=== PATIENT | male | born 1935 | race Caucasian/White ===

== ENCOUNTER → 2017-02-27 | Outpatient (CLI) | payer OTHER, BC ==
[~2017-02-27] MED LIST: AMOX875T PO; CLC100 PO; DUTA0.5C PO; FINA5TAB PO; FLM4 PO; IBUP-1459 PO; LISI40TA PO; NAPR220T40 PO; PRLSR20 PO; SIMV40TA2 PO; SIMV80TA2 PO; TERA5CAP PO; TRAM-10 PO; ZNTT/150 PO
--- NOTE | 2017-02-28 17:23 | DIAGNOSTIC IMAGING REPORT ---
PET/CT CLINICAL HISTORY: Pulmonary nodule. TECHNIQUE: A PET/CT was performed from the skull base through the upper thighs following intravenous injection of F 18 FDG IV. The injection was performed at 12:15 PM on February 27, 2017 and imaging began at 1:00 PM on February 27, 2017. Unenhanced CT was performed for attenuation correction purposes and anatomic localization. COMPARISON STUDY: CT of the abdomen and pelvis December 18, [address] performed earlier today. FINDINGS: Head and neck: No suspicious FDG uptake is identified within the neck. There is no cervical lymphadenopathy. Chest: There is marked FDG uptake within the lobulated 4 x 3.5 cm left lower lobe mass. The SUV max for this mass is 8.4. There is moderate FDG uptake within the circumscribed 1 cm right upper lobe nodule which is shown on image 65. The SUV max for this nodule is 4.4. A few additional smaller right upper lobe nodules are indeterminate and too small to evaluate by PET imaging. No suspicious ludin FDG uptake is identified within the chest. Abdomen and Pelvis: No suspicious FDG uptake is identified within the abdomen or the pelvis. There is no abdominal or pelvic lymphadenopathy. Prostate is moderately enlarged. Musculoskeletal: No suspicious skeletal FDG uptake is identified. IMPRESSION: 1. Marked FDG uptake within the 4 x 3.5 cm left lower lobe mass consistent with bronchogenic carcinoma. 2. Moderate FDG uptake within a circumscribed 1 cm right upper lobe nodule. This nodule is indeterminate although suspicious for a neoplastic process given the degree of FDG uptake. This could reflect a metastasis or primary pulmonary lesion. 3. No evidence of ludin involvement. Electronically signed by: Coleman Rutherford M.D. 02/28/2017 5:22 PM Dictated Date/Time: 02/27/2017 2:14 PM
== END | disposition home or self-care (01) ==
LOC: C.PET 07:31
PROVIDERS: ATTEND Physician Assistant
DX: R91.1 Solitary pulmonary nodule (principal)

== ENCOUNTER → 2017-02-27 | Outpatient (CLI) | payer BC, OTHER ==
--- NOTE | 2017-02-27 08:06 | DIAGNOSTIC IMAGING REPORT ---
CT OF THE CHEST WITHOUT IV CONTRAST CLINICAL HISTORY: Lung mass. Shortness of breath. COMPARISON STUDY: CT of the abdomen and pelvis December 18, 2016. CT DOSE: 667.69 mGy.cm TECHNIQUE: Axial images of the chest were obtained without IV contrast. Images were reviewed in the axial, sagittal, and coronal planes. IV contrast was not administered for this examination. FINDINGS: No enlarged axillary, mediastinal or hilar lymph nodes are present. The size of the heart is normal. There is no pericardial effusion. Note is made of a lobulated 4 x 3.5 cm left lower lobe mass with several pleural tags. There is also an indeterminate 1 cm circumscribed right upper lobe nodule on image 81 of 301. A few smaller right upper lobe nodules measure up to 4 mm. These are indeterminate. No suspicious osseous lesions are present. There is no consolidation. No pneumothorax or pleural effusion is present. Visualized portions of the upper abdomen demonstrate a subtle 2.6 cm hepatic dome hypodense lesion shown to likely reflect a hemangioma on abdominal CT of December 18, 2016. IMPRESSION: 1. 4 x 3.5 cm lobulated left lower lobe mass which has slightly increased in size since CT of December 18, 2016. This is consistent with bronchogenic carcinoma. 2. No thoracic lymphadenopathy. 3. Several indeterminate right upper lobe nodules, the largest of which is a 1 cm circumscribed nodule. Evaluation with PET/CT may be of benefit. 4. 2.6 cm hepatic dome lesion which was shown to represent a hemangioma on CT of December 18, 2016. Electronically signed by: Coleman Rutherford M.D. 02/27/2017 8:05 AM Dictated Date/Time: 02/27/2017 7:50 AM
== END | disposition home or self-care (01) ==
LOC: C.CTS 07:27
PROVIDERS: ATTEND Physician Assistant
DX: R06.02 Shortness of breath (principal); R91.8 Other nonspecific abnormal finding of lung field; R91.1 Solitary pulmonary nodule; K76.9 Liver disease, unspecified

== ENCOUNTER 2017-03-27 07:36 | Day surgery (SDC) | payer OTHER, BC ==
[2017-03-14 16:00] VITALS: BMI 31.0
[~2017-03-27] VITALS: Ht 180.3 cm; Wt 102.0 kg
[~2017-03-27 07:36] MED LIST changes: -AMOX875T PO; -CLC100 PO; -FINA5TAB PO; +LACTATED RINGER'S 1000ML 1,000 ML IV SCH; -NAPR220T40 PO; -SIMV40TA2 PO; -TRAM-10 PO; -ZNTT/150 PO
[2017-03-27] MEDS ORDERED: NAPR220T40 PO (07:58)
[2017-03-27 08:03] VITALS: BP 125/63; PULSE 91; TEMP 36.6; O2SAT 94; Ht 180.3 cm; Wt 102.0 kg
[2017-03-27] MEDS ORDERED: FENTANYL CITRATE INJ 50 MCG/1 ML 2 ML VIAL ONE (08:43)
[2017-03-27] MEDS ORDERED: LIDOCAINE HCL 2% 2 ML VIAL (20MG/ML) ONE (08:43)
[2017-03-27] MEDS ORDERED: PROPOFOL IV EMULSION 10 MG/ML 20 ML VIAL IV ONE (08:43)
[2017-03-27] MEDS ORDERED: ROCURONIUM BROMIDE 10 MG/ML 5 ML VIAL ONE (08:43)
--- NOTE | 2017-03-27 09:01 | History and Physical ---
History & Physical Date Mar 27, 2017. Chief Complaint CC: Lung Mass History of Present Illness The patient is a 81 year old male with complaints of Lung Mass This patient is an [id number] 81-year-old gentleman with pulmonary mass with a high risk for primary lung carcinoma from his history of tobacco exposure as well as asbestos. At this time he has PET avid left lower lobe nodule at greatest dimension of 4 centimeters with an SUV of 8.4. He also has complicating the matter a 1.1 centimeter right upper lobe nodule with minimal PET avidity. The mediastinum showed no signs of PET avidity via the PET scan. The patient will require EBUS/ENB evaluation for further workup. The patient and his daughter both agree this is in the best interest of the patient. 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 PET/CT (02/27/17) LLL 4 x 3.5cm mass SUV: 8.4 RUL 1cm SUV: 4.4 Additional History Hepatic Disease: No Endocrine Disorder: No Kidney Disease: No Hypertension: No Heart Disease: No Bleeding Tendencies: No Infectious Diseases: No Allergies Coded Allergies: No Known Allergies (Unverified , 03/27/17) Home Medications Scheduled Dutasteride (Avodart), 0.5 MG PO QAM Lisinopril (Zestril), 40 MG PO QAM Simvastatin (Zocor), 80 MG PO QAM Tamsulosin HCl (Tamsulosin HCl), 1 CAP PO QPM Terazosin (Hytrin), 5 MG PO HS Scheduled PRN Naproxen Sodium (Aleve), 220 MG PO Q8 PRN for Pain Physical Examination Skin: warm/dry, no rash Eyes: normal inspection, EOMI, sclerae normal ENT: normal ENT inspection, pharynx normal Head: normocephalic, atraumatic Neck: supple, no adenopathy, trachea midline Respiratory/Chest: lungs clear, normal breath sounds, no respiratory distress Cardiovascular: regular rate, rhythm, no edema, no murmur Abdomen / GI: normal bowel sounds, non tender Back: normal inspection Extremities: normal inspection, normal range of motion Neurologic/Psych: no motor/sensory deficits, alert, normal reflexes, oriented x 3 Diagnosis Lung mass ASA Classification: ASA Class III Plan of Treatment The patient is to undergo overture navigational bronchoscopy as well as endobronchial ultrasound for evaluation of his lung mass, mediastinum and small right upper lobe nodule.
--- NOTE | 2017-03-27 09:14 | History & Physical Bridge Note ---
H&P Re-Evaluation Bridge Note: I have examined the patient, reviewed the History & Physical and in the interval since the performance of the History & Physical I have noted the following changes of clinical significance: No changes noted
[2017-03-27] MEDS ORDERED: EpHEDrine SULFATE 50MG/5ML SYR ONE (09:34)
[2017-03-27] MEDS ORDERED: ONDANSETRON INJ 2 MG/ML 2 ML VIAL ONE ×2 (09:34→11:45)
[2017-03-27] MEDS ORDERED: DEXAMETHASONE SOD INJ 4 MG/ML VIAL ONE (09:34)
[2017-03-27] MEDS ORDERED: ONDANSETRON INJ 2 MG/ML 2 ML VIAL IV PRN (09:45)
[2017-03-27] MEDS ORDERED: ATROPINE SULFATE 0.1 MG/ML 5ML SYR IV PRN (09:45)
[2017-03-27] MEDS ORDERED: FENTANYL CITRATE INJ 50 MCG/1 ML 2 ML VIAL IV PRN (09:45)
[2017-03-27] MEDS ORDERED: NEOSTIGMINE METHYLSULFATE 5 MG/5 ML SYR ONE (10:25)
[2017-03-27] MEDS ORDERED: GLYCOPYRROLATE INJ 0.2 MG/ML VIAL ONE (10:25)
--- NOTE | 2017-03-27 11:52 | Bronchoscopy Procedure Note ---
Bronchoscopy Procedure Note Procedure: Flexible-Bronchoscopy, EBUS, Tbbx, GETA Consent: Obtained through the patient placed into the chart Preprocedural diagnosis: Pulmonary mass Postprocedural diagnosis: Pulmonary mass Analgesia: GETA Sedation: GETA Procedure: The Olympus video bronchoscope and EBUS scope were used for this procedure Initially the flexible bronchoscope was used for evaluation of the airways. The ET tube was notably 5 cm above the level of the nura. Trachea: Visualized portion of the trachea was anatomically within normal limits Nura: Anatomically within normal limits Right bronchial tree: Right mainstem bronchus: Anatomically within normal limits Right upper lobe: Anatomically within normal limits Bronchus intermedius: Anatomically within normal limits Right middle lobe: Anatomically within normal limits Right lower lobe: Anatomically within normal limits Findings: No significant findings noted Left bronchial tree: Left mainstem bronchus: Anatomically within normal limits Left upper lobe: Anatomically within normal limits Lingula: Anatomically within normal limits Left lower lobe: Anatomically within normal limits Findings: No significant findings noted EBUS/RADHA: Tbbx Henrry Stations: 7: # of passes 3 4R: # of passes passes 3 4L: # of passes 3 10R: # of passes 3 10L: # of passes 3 11R: # of passes 3 11L: # of passes 3 ENB: LLL: FNA, Tbbx, BAL, Cytology brushing RUL: FNA, Tbbx, BAL, Cytology brushing EBL: none Complications: None Follow-up: Patient is to be removed to PACU and followed
--- NOTE | 2017-03-27 12:30 | DIAGNOSTIC IMAGING REPORT ---
INTRAOPERATIVE RADIOGRAPH CLINICAL HISTORY: Bilateral navigational bronchoscopy. Fluoroscopy time: 252 seconds. FINDINGS: 2 spot fluoroscopic views of the chest are presented. Correlation is made with chest CT dated 02/27/2017. On the first image the bronchoscope projects over the left lung on the second image the bronchoscope projects over the right lung. IMPRESSION: Intraoperative images from bilateral navigational bronchoscopy. See operative report for detailed findings. Electronically signed by: Navin Hyatt M.D. 03/27/2017 12:29 PM Dictated Date/Time: 03/27/2017 12:27 PM
[2017-03-27 12:35] VITALS: BP 141/74; PULSE 71; TEMP 36.3; O2SAT 95
[2017-03-27 13:05] VITALS: BP 128/70; PULSE 69; O2SAT 93
[2017-03-27 13:35] VITALS: BP 118/68; PULSE 76; TEMP 36.3; O2SAT 94
--- NOTE | 2017-03-27 13:50 | Discharge Instructions ---
Discharge Instructions Date of Service Mar 27, 2017. Admission Reason for Admission: Lung Nodule, Lung Mass, Sob Discharge Discharge Diagnosis / Problem: lung mass Discharge Goals Goal(s): Diagnostic testing Activity Recommendations Activity Limitations: resume your previous activity . Instructions / Follow-Up Instructions / Follow-Up Follow-up in the pulmonary clinic with Dr. Dawn [facility] Diet Patient's current hospital diet: Discharge Diet Recommended Diet: Regular Diet Procedures Procedures Performed: Electromagnetic Navigational Bronchoscopy; Endobronchial Ultrasound Transbronchial Biopsy, Trans-Tracheal/Bronchial biospy , Bronchial Lavage Pending Studies Studies pending at discharge: no Medical Emergencies . Who to Call and When: Medical Emergencies: If at any time you feel your situation is an emergency, please call 911 immediately. . Non-Emergent Contact Non-Emergency issues call your: [employer] Call Non-Emergent contact if: temperature is above 101.5 . . "Provider Documentation" section prepared by Abdullahi Dawn. . VTE Core Measure Inpt VTE Proph given/why not?: Treatment not indicated
--- NOTE | 2017-03-27 13:56 | DIAGNOSTIC IMAGING REPORT ---
SINGLE VIEW CHEST CLINICAL HISTORY: Status post navigational bronchoscopy. FINDINGS: An AP, portable, upright chest radiograph is correlated with chest CT dated 02/27/2017. The examination is degraded by portable technique and patient rotation. The heart is mildly enlarged. The mediastinal contour is within normal limits. Interstitial thickening and nodularity are similar to previous. A left basilar opacity likely corresponds to the mass lesion seen on the 02/27/2017 CT scan. Linear atelectasis is present the left lung base. No pleural effusion or pneumothorax is seen. The skeletal structures are osteopenic. The bony thorax is grossly intact. IMPRESSION: 1. No pneumothorax is identified post procedure. 2. A left basilar opacity corresponds to the mass lesion seen by CT on 02/27/2017. 3. Smaller right-sided pulmonary nodules seen on the prior CT scan were not well visualized by x-ray. 4. Mild cardiomegaly. Electronically signed by: Navin Hyatt M.D. 03/27/2017 1:55 PM Dictated Date/Time: 03/27/2017 1:52 PM
[2017-03-27 14:15] VITALS: BP 131/63; PULSE 68; TEMP 36.6; O2SAT 94
--- NOTE | 2017-03-27 14:32 | Anesthesiology Progress Note ---
Anesthesia Post Op Note Date & Time Mar 27, 2017 at 14:31 Vital Signs Pain Intensity: 0 Vital Signs Past 12 Hours Date Time Temp Pulse Resp B/P (MAP) Pulse Ox O2 Delivery O2 Flow Rate FiO2 03/27/17 14:15 36.6 68 18 131/63 94 Room Air 03/27/17 13:35 36.3 76 18 118/68 94 Room Air 03/27/17 13:05 69 18 128/70 93 Room Air 03/27/17 12:35 36.3 71 18 141/74 95 Room Air 03/27/17 12:26 36.5 16 139/78 03/27/17 12:21 76 13 03/27/17 12:21 76 13 150/75 98 03/27/17 12:16 76 13 151/72 98 03/27/17 12:16 76 13 03/27/17 12:11 77 12 128/79 98 03/27/17 12:11 77 12 03/27/17 12:06 81 14 03/27/17 12:06 82 14 131/83 92 03/27/17 12:01 81 13 141/67 92 03/27/17 12:01 81 13 03/27/17 11:58 141/63 03/27/17 11:51 36.2 85 16 152/67 98 Mask 7 03/27/17 08:03 36.6 91 20 125/63 (83) 94 Room Air Notes Mental Status: alert / awake / arousable, participated in evaluation Pt Amnestic to Procedure: Yes Nausea / Vomiting: adequately controlled Pain: adequately controlled Airway Patency, RR, SpO2: stable & adequate BP & HR: stable & adequate Hydration State: stable & adequate Anesthetic Complications: no major complications apparent
[2017-04-30] MEDS ORDERED: SIMV40TA2 PO (10:49)
[2017-04-30] MEDS ORDERED: ZNTT/150 PO (10:49)
[2017-04-30] MEDS ORDERED: FINA5TAB PO (10:49)
== END 2017-03-27 14:30 | disposition home or self-care (01) ==
LOC: C.ACU 07:36
PROVIDERS: ATTEND Internal Medicine Critical Care Medicine
DX: R91.1 Solitary pulmonary nodule (principal); E66.9 Obesity, unspecified; Z87.891 Personal history of nicotine dependence; Z80.1 Family history of malignant neoplasm of trachea, bronchus and lung; Z82.49 Family history of ischemic heart disease and other diseases of the circulatory system

== ENCOUNTER 2017-05-08 05:18 | Inpatient (IN) | payer BC, OTHER ==
[2017-04-30 10:50] VITALS: BMI 31.0
[2017-05-08] VITALS (9 sets, daily range): BP systolic 120–150; BP diastolic 70–90; PULSE 64–88; TEMP 36.3–36.5; O2SAT 94–97; Ht 180.3 cm; Wt 101.8 kg
[~2017-05-08] VITALS: Ht 180.3 cm; Wt 101.8 kg
[~2017-05-08 05:18] MED LIST changes: -DUTA0.5C PO; +FINA5TAB PO; -IBUP-1459 PO; -LACTATED RINGER'S 1000ML 1,000 ML IV SCH; +NAPR220T40 PO; -PRLSR20 PO; +SIMV40TA2 PO; -SIMV80TA2 PO; -TERA5CAP PO; +ZNTT/150 PO
[2017-05-08] MEDS ORDERED: LACTATED RINGER'S 1000ML 1,000 ML IV SCH (06:00)
[2017-05-08] MEDS ORDERED: PROPOFOL IV EMULSION 10 MG/ML 20 ML VIAL IV ONE (06:24)
[2017-05-08] MEDS ORDERED: ONDANSETRON INJ 2 MG/ML 2 ML VIAL ONE (06:24)
[2017-05-08] MEDS ORDERED: ROCURONIUM BROMIDE 10 MG/ML 5 ML VIAL IV ONE ×4 (06:24→09:56)
[2017-05-08] MEDS ORDERED: FENTANYL CITRATE INJ 50 MCG/1 ML 2 ML VIAL ONE (06:24)
[2017-05-08] MEDS ORDERED: LIDOCAINE HCL 2% 2 ML VIAL (20MG/ML) ONE (06:24)
[2017-05-08] MEDS ORDERED: DEXAMETHASONE SOD INJ 4 MG/ML VIAL ONE (06:24)
[2017-05-08] MEDS ORDERED: SODIUM CHLORIDE 0.9% PF 50 ML VIAL ONE (07:08)
[2017-05-08] MEDS ORDERED: BUPIVACAINE LIPOSOME 1/3% 266 MG/20 ML VIAL INFIL ONE (07:08)
[2017-05-08] MEDS ORDERED: EpHEDrine SULFATE 50MG/5ML SYR ONE (07:42)
[2017-05-08] MEDS ORDERED: CLINDAMYCIN PHOS 150 MG/ML 2 ML VIAL ONE (07:48)
[2017-05-08] MEDS ORDERED: PHENYLEPHRINE HCL INJ 10 MG/ML VIAL ONE (08:44)
--- NOTE | 2017-05-08 09:02 | DIAGNOSTIC IMAGING REPORT ---
CHEST 1 VIEW FRONTAL CLINICAL HISTORY: NAVIGATIONAL BRONCHSCOPY COMPARISON STUDY: Chest 03/21/1617. FINDINGS: Total fluoroscopy time was 1 minute and 27 seconds. A single fluoroscopic spot image of the right upper chest was submitted. There is a bronchoscope seen within the right upper lobe bronchus with placement of 2 metallic fiducial markers adjacent to the right upper lobe nodule. IMPRESSION: Fluoroscopy provided for bronchoscopy. Electronically signed by: Kenny Delaney M.D. 05/08/2017 9:01 AM Dictated Date/Time: 05/08/2017 8:57 AM
[2017-05-08] MEDS ORDERED: EpHEDrine SULFATE INJ 50 MG/ML AMP IV PRN (09:45)
[2017-05-08] MEDS ORDERED: FENTANYL CITRATE INJ 50 MCG/1 ML 2 ML VIAL IV PRN (09:45)
[2017-05-08] MEDS ORDERED: MEPERIDINE HCL 25 MG/ML CARP IV PRN (09:45)
[2017-05-08] MEDS ORDERED: ONDANSETRON INJ 2 MG/ML 2 ML VIAL IV PRN ×2 (09:45→11:30)
[2017-05-08] MEDS ORDERED: HYDROmorphone INJ 1 MG/ML SYR IV PRN (09:45)
[2017-05-08] MEDS ORDERED: ATROPINE SULFATE 0.1 MG/ML 5ML SYR IV PRN (09:45)
[2017-05-08] MEDS ORDERED: LABETALOL HCL IV 5 MG/ML 20ML IV PRN (09:45)
[2017-05-08] MEDS ORDERED: GLYCOPYRROLATE INJ 0.2 MG/ML VIAL ONE (10:39)
[2017-05-08] MEDS ORDERED: NEOSTIGMINE METHYLSULFATE 5 MG/5 ML SYR ONE (10:39)
[2017-05-08] MEDS ORDERED: MoRPHine SULFATE 2 MG/ML CARP IV PRN (11:30)
--- NOTE | 2017-05-08 12:10 | DIAGNOSTIC IMAGING REPORT ---
CHEST ONE VIEW PORTABLE HISTORY: Left lower lobectomy. Postop. COMPARISON: Chest 05/08/2017. FINDINGS: There is a tiny left apical pneumothorax with a pleural gap of 2 mm. Left chest tube terminates in the left upper lung zone. Small amount of left chest wall subcutaneous emphysema. Left basilar linear densities favor subsegmental atelectasis. There are 2 metallic fiducial markers within the right upper lobe adjacent to the 1 cm upper lobe nodule. The heart is stable in size. IMPRESSION: Tiny left pneumothorax. Left chest tube appears to be in good position. Electronically signed by: Kenny Delaney M.D. 05/08/2017 12:08 PM Dictated Date/Time: 05/08/2017 12:07 PM
--- NOTE | 2017-05-08 12:35 | Anesthesiology Progress Note ---
Anesthesia Post Op Note Date & Time May 08, 2017 at 12:35 Vital Signs Pain Intensity: 0 Vital Signs Past 12 Hours Date Time Temp Pulse Resp B/P (MAP) Pulse Ox O2 Delivery O2 Flow Rate FiO2 05/08/17 12:25 72 14 134/72 94 Nasal Cannula 2 05/08/17 12:15 71 13 134/76 96 Nasal Cannula 2 05/08/17 12:05 36.2 78 17 133/77 96 Nasal Cannula 2 05/08/17 11:55 73 12 132/76 95 Nasal Cannula 2 05/08/17 11:45 75 11 132/74 99 Oxymask 6 05/08/17 11:35 82 23 122/70 99 Oxymask 10 05/08/17 11:28 36.4 86 12 131/69 99 Mask 10 05/08/17 05:50 36.4 64 18 147/70 97 Room Air Notes Mental Status: alert / awake / arousable, participated in evaluation Pt Amnestic to Procedure: Yes Nausea / Vomiting: adequately controlled Pain: adequately controlled Airway Patency, RR, SpO2: stable & adequate BP & HR: stable & adequate Hydration State: stable & adequate Anesthetic Complications: no major complications apparent
[2017-05-08] MEDS: OXYCODONE HCL IR 5 MG TAB (IMMEDIATE RELEASE) PO PRN (13:13)
[2017-05-08] MEDS: D5W AND 1/2NSS 1,000 ML IV SCH ×2 (13:14→21:21)
[2017-05-08] MEDS: ACETAMINOPHEN IV 1,000 MG in EMPTY BAG 0 ML IV SCH ×2 (13:51→21:53)
[2017-05-08] MEDS: KETOROLAC TROMETHAMINE 15 MG/ML VIAL IV. SCH ×2 (14:08→21:54)
[2017-05-08] MEDS: METOCLOPRAMIDE HCL INJ 5 MG/ML 2 ML VIAL IV. SCH ×2 (14:09→21:53)
[2017-05-08] MEDS: CLINDAMYCIN IV 900 MG in DEXTROSE 5% 100ML 100 ML IV SCH ×2 (14:14→20:01)
--- NOTE | 2017-05-08 18:39 | OPERATIVE REPORT ---
DATE OF OPERATION: 05/08/2017 PREOPERATIVE DIAGNOSES: 1. Hypermetabolic small nodule, right upper lobe. 2. Large hypermetabolic mass, left lower lobe. POSTOPERATIVE DIAGNOSES: Same. PROCEDURE: Electromagnetic navigational bronchoscopy with marking of right upper lobe lesion with fiducial markers x2. SURGEON: Dr. Mott. CAN OPERATOR: GUANAKO Kevin. ANESTHESIA: General anesthesia endotracheal intubation. INDICATION FOR PROCEDURE AND FINDINGS: Mr. Vidales is an 82-year-old fairly well preserved male who was found to have 2 masses in his lungs. He underwent an endobronchial ultrasound and a navigational bronchoscopy by Dr. Dawn and nodes appeared to be negative and we did not get a diagnosis, but both of these lesions are most likely carcinomas. We elected to proceed with a resection of the left lower lobe mass which was large; however, we felt that with a fiducial marker, we could kath the right upper lobe and offer sterotactic ablative therapy (SBRT). On 05/08/2017, the patient was brought to the operating room and underwent an uncomplicated electromagnetic navigational bronchoscopy. I did not biopsy this as I was preparing to do a thoracoscopic left lower lobectomy, did not want cause the possible pneumothorax as he would be on one lung ventilation. For this reason, we did use an ultrasound and found that we were right in the mass. I placed 2 fiducial markers about a centimeter away from each other. This was done under fluoroscopic guidance as well as using the radial ultrasound probe. This worked up very well. He was then ready for his thoracoscopic left lower lobectomy. PROCEDURE: The patient brought to the operating room and laid in supine position. General anesthesia induced and endotracheal intubation was performed. The down to single lumen tube. The patient's airways had been mapped by the [employer] navigational system and his CT scan. I then placed the fiberoptic bronchoscope to the adaptor to the single lumen endotracheal tube and registered his airway probably down to the tertiary airways. We then began our navigation and went into the upper lobe and I was able to get very close to this mass. I was about 1 cm away and then using the radial ultrasound probe, it appeared that about a cm away from the tip thoracoscopically we saw a change that appeared to be a mass of the ultrasound. A fiducial marker was left here and then about a cm superior. We then did washings of this area for cytology. I then removed the navigational probe and with the use of fiberoptic bronchoscope it could be seen that we saw no evidence of bleeding. We then prepared to switch him over to a double lumen tube for his thoracoscopic lobectomy. He tolerated it quite well. I attest to the content of the Intraoperative Record and any orders documented therein. Any exception s are noted below.
--- NOTE | 2017-05-08 19:20 | OPERATIVE REPORT ---
DATE OF OPERATION: 05/08/2017 PREOPERATIVE DIAGNOSIS: Hypermetabolic mass, left lower lobe. POSTOPERATIVE DIAGNOSIS: Nonsmall cell lung carcinoma, left lower lobe. PROCEDURES: 1. Thoracoscopic left lower lobectomy. 2. Mediastinal lymphadenectomy. SURGEON: Dr. Mott. EVENT MARKETING INTERN: GUANAKO Kevin. ANESTHESIA: General anesthesia endotracheal intubation using double lumen tube. SPECIFICS OF PROCEDURE: This is an interesting 82-year-old man who is fairly well preserved. Does have a history of cigarette smoking, was found to have 2 hypermetabolic masses. He is worked up by Dr. Abdullahi Dawn. Unfortunately, even after electromagnetic navigational bronchoscopy, we do not have a diagnosis; however, the endobronchial ultrasound shows mediastinum was apparently clean. The metastases in the PET scan did not light up anywhere else. After a long discussion and presentation at our cancer conference, we elected to proceed with a marking of the right upper lobe lesion with an electromagnetic navigational bronchoscopy and fiducial markers. I did that before the thoracoscopic lobectomy, which was also recommended. On 05/08/2017, patient underwent an uncomplicated left lower lobectomy thoracoscopically. We had negligible blood loss and no air leak at conclusion of the case. He tolerated it quite well. Frozen section showed negative bronchial margins. However, this does appear to be a nonsmall cell lung carcinoma and may well be a squamous cell carcinoma. It was involving the pleura, but was not involving the parietal pleura. We did a complete lymph node dissection. PROCEDURE IN DETAIL: The patient brought to the operating room and laid in supine position. General anesthesia induced and endotracheal intubation was performed with a double lumen tube after his navigational bronchoscopy and fiducial markers had been placed. The patient was then turned in a right lateral decubitus position, his left chest prepped and draped in the usual sterile fashion. The main incision, one interspace below the tip of the scapula, bit anterior and upon entering the pleural cavity, could be seen and there was no evidence of any adhesions. A 12 mm port was placed. A 10 mm 30-degree scope was placed. We really saw very little in the way of adhesions and he had fairly well-developed fissures. Another port was placed at about the 7th interspace anteriorly and then another port was placed at about the 4th interspace, just anterior to the scapula. I then took down the inferior pulmonary ligaments and biopsied the level 8 and level 9 nodes. I then was able to free up the vein without difficulty. Upon going up posterior to the hilum, I then biopsied level 11 and level 10 node and in fact went all the way down and biopsied the level 7 node. The attention was then turned anteriorly. I dissected out the fissure until we came to the artery. There were 3 branches that needed to be taken. I dissected this out anteriorly until we came down in front of the bronchus and then I was able to get around this and used a stapler to complete our fissure anteriorly. With the use of the cautery, we were able to complete the fissure posteriorly. I then was able to dissect out the arteries away from the bronchus and we fired staplers x3 to complete these. I did identify the lingual artery and the lingual bronchus. I then fired a stapler across the bronchus, just below this. This left just the vein which was divided with an Endo-ANA stapler. We then delivered this mass off the field in an Endobag through the superior interspace. I then irrigated out the chest. We really had very little in the way of an air leak. The 266 mg of Exparel was mixed with 80 mL of normal saline total and then I performed an intrathoracic block from the 2nd to the 11th rib. The 24-Argentine chest tube was then directed towards the apex to the anterior thoracoscopy port and sutured in place with heavy silk suture. 0 Vicryl was used to close the muscle areas of both ports. The 4-0 Monocryl was then used to close the skin of all the incisions. There was some air leak at conclusion of the case. He was extubated without difficulty in the room. Blood loss was negligible. I attest to the content of the Intraoperative Record and any orders documented therein. Any exception s are noted below.
[2017-05-08] MEDS ORDERED: NURSING VERBAL MED ORDER ONE (21:15)
[2017-05-08] MEDS: DOCUSATE SODIUM 100 MG CAP PO SCH (21:21)
[2017-05-08] MEDS: FINASTERIDE 5 MG TAB PO SCH (21:21)
[2017-05-08] MEDS: RANITIDINE HCL 150 MG TAB PO SCH (21:21)
[2017-05-08] MEDS: TAMSULOSIN HCL 0.4 MG CAP PO SCH (21:21)
[2017-05-09] VITALS (7 sets, daily range): BP systolic 107–150; BP diastolic 64–76; PULSE 59–71; TEMP 36.3–36.5; O2SAT 93–95
[2017-05-09] MEDS: METOCLOPRAMIDE HCL INJ 5 MG/ML 2 ML VIAL IV. SCH (05:14)
[2017-05-09] MEDS: KETOROLAC TROMETHAMINE 15 MG/ML VIAL IV. SCH ×3 (05:14→21:51)
[2017-05-09] MEDS: ACETAMINOPHEN IV 1,000 MG in EMPTY BAG 0 ML IV SCH (05:14)
[2017-05-09] MEDS: D5W AND 1/2NSS 1,000 ML IV SCH (05:14)
[2017-05-09 05:18] LABS: BASO % 0.1 %; BASO ABS # 0.01 K/uL (0-0.2); COMPLETE YES; EOS % 0.3 %; HEMATOCRIT 36.7 % (42-52); IG% 0.9 %; LYMPH % 15.7 %; LYMPH ABS # 2.27 K/uL (1.2-3.4); MEAN CELL VOLUME 87.6 fL (80-100); MEAN CORPUSCULAR HEMOGLOBIN 30.5 pg (25-34); MEAN CORPUSCULAR HGB CONC 34.9 g/dl (32-36); MEAN PLATELET VOLUME 9.6 fL (7.4-10.4); MONO % 6.5 %; NEUT % 76.5 %; PLATELET COUNT 150 K/uL (130-400); RED BLOOD COUNT 4.19 M/uL (4.7-6.1); WHITE BLOOD COUNT 14.45 K/uL (4.8-10.8)
[2017-05-09 05:30] LABS: INR 1.1 (0.9-1.1); PROTHROMBIN TIME (PATIENT) 11.5 SECONDS (9.0-12.0)
[2017-05-09 05:44] LABS: CALCIUM 7.9 mg/dl (8.5-10.1); POTASSIUM 4.2 mmol/L (3.5-5.1)
--- NOTE | 2017-05-09 07:08 | DIAGNOSTIC IMAGING REPORT ---
CHEST ONE VIEW PORTABLE HISTORY: 82 years-old Male LLL prior left lower lobectomy. Pneumothorax follow-up. COMPARISON: Portable chest radiograph 05/08/2017 TECHNIQUE: Portable upright AP view of the chest FINDINGS: Fiducial markers within the region of the right upper lobe are seen. Left-sided chest tube is noted in unchanged position. Tiny left apical pneumothorax is redemonstrated with only a few millimeters of visceral pleural separation, unchanged. There is decreased amount of subcutaneous emphysema along the left chest wall. Subsegmental hazy left basilar opacity is again seen suggesting atelectasis. Right lung is clear. Cardiac silhouette is mildly enlarged. Mild pulmonary vascular congestion persists. Degenerative changes are seen about the bilateral shoulders. IMPRESSION: Unchanged tiny left apical pneumothorax with decreased amount of left chest wall subcutaneous emphysema. The above report was generated using voice recognition software. It may contain grammatical, syntax or spelling errors. Electronically signed by: Burak Sweeney M.D. 05/09/2017 7:07 AM Dictated Date/Time: 05/09/2017 7:05 AM
--- NOTE | 2017-05-09 08:16 | Anesthesiology Progress Note ---
Anesthesia Post Op Note Date & Time May 09, 2017 at 08:16 Vital Signs Vital Signs Past 12 Hours Date Time Temp Pulse Resp B/P (MAP) Pulse Ox O2 Delivery O2 Flow Rate FiO2 05/09/17 07:45 95 Room Air 05/09/17 07:01 36.5 59 15 93 Room Air 05/09/17 04:40 36.5 62 17 107/64 (78) 95 Room Air 05/09/17 00:40 36.5 71 16 121/67 (85) 95 Room Air 05/08/17 22:50 Room Air 05/08/17 20:40 36.4 88 20 126/74 (91) 97 Nasal Cannula Notes Mental Status: alert / awake / arousable, participated in evaluation Pt Amnestic to Procedure: Yes Nausea / Vomiting: adequately controlled Pain: adequately controlled Airway Patency, RR, SpO2: stable & adequate BP & HR: stable & adequate Hydration State: stable & adequate Anesthetic Complications: no major complications apparent
[2017-05-09] MEDS: SIMVASTATIN 40 MG TAB PO SCH (08:37)
[2017-05-09] MEDS: LISINOPRIL 40 MG TAB PO SCH (08:37)
[2017-05-09] MEDS: RANITIDINE HCL 150 MG TAB PO SCH ×2 (08:37→20:42)
[2017-05-09] MEDS: DOCUSATE SODIUM 100 MG CAP PO SCH ×2 (08:37→20:42)
[2017-05-09] MEDS: OXYCODONE HCL IR 5 MG TAB (IMMEDIATE RELEASE) PO PRN ×2 (08:37→18:40)
[2017-05-09] MEDS: ENOXAPARIN 40 MG/0.4 ML SYR SQ SCH (08:38)
--- NOTE | 2017-05-09 09:35 | Clinical Documentation Query ---
Mr. VASQUEZHAIM : CLINICAL DOCUMENTATION QUERY Patient is an 82 year old male who underwent electromagnetic navigational bronchoscopy with marking of right upper lobe lesion with fiducial markers x2 with subsequent thorascopic left lower lobectomy and mediastinal lymphadenectomy. Postoperative chest radiographs demonstrate a small left pneumothorax. 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 In your clinical opinion is this patient being managed for: ( x ) Pneumothorax, expected post thorascopic procedure, not a complication of care ( ) Not Agree ( ) Other explanation of clinical findings (Please Explain) ( ) Unable to determine (Please Define) ( ) Need to Discuss The medical record reflects the following clinical findings, treatment, and risk factors. Clinical Indicators: As above Treatment: Serial chest radiographs Risk Factors: Thorascopic surgery Please clarify and document your clinical opinion in the progress notes and discharge summary. Terms such as "probable", "suspected", "likely", "questionable", "possible", or "still to be ruled out" are acceptable. IF IN AGREEMENT, YOU MUST DOCUMENT ABOVE DIAGNOSTIC STATEMENT IN DAILY PROGRESS NOTES AND DISCHARGE SUMMARY. This document is not part of the patient's record. Thank You, Erlin Jordan, RN [phone]
--- NOTE | 2017-05-09 09:42 | SURGERY PROGRESS NOTE ---
DATE: 05/09/2017 DATE: 05/09/2017 Jose Vidales is an 82-year-old male who underwent an Electromagnetic navigational bronchoscopy with placement of 2 fiducial markers yesterday for a hypermetabolic but undiagnosed nodule in the right upper lobe. I also did a thoracoscopic left lower lobectomy with mediastinal lymphadenectomy for a large cancer which was also undiagnosed prior to going in. 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 Quite frankly Mr. Vidales did superbly. He is on room air. He is ambulating in the hallway. He is eating a regular diet. The only issue that has arisen with Mr. Vidales is in urinary retention. He has had this problem before. We put a Mayen catheter in him, had it in overnight. We are going to pull it out this morning and put him on Flomax. Otherwise, his pain control is excellent. He has no air leak. My plan at this point is to remove his chest tube and discharge him in the morning. We will see how he does over the course of the day. ELIANA
[2017-05-09] MEDS: ACETAMINOPHEN 325 MG TAB PO SCH ×2 (12:01→18:40)
[2017-05-09] MEDS: FINASTERIDE 5 MG TAB PO SCH (20:42)
[2017-05-09] MEDS: TAMSULOSIN HCL 0.4 MG CAP PO SCH (20:42)
[2017-05-10] MEDS: KETOROLAC TROMETHAMINE 15 MG/ML VIAL IV. SCH (05:38)
[2017-05-10] MEDS: ACETAMINOPHEN 325 MG TAB PO SCH ×4 (05:39→18:00)
[2017-05-10 07:17] VITALS: BP 162/81; PULSE 65; TEMP 36.7; O2SAT 94
--- NOTE | 2017-05-10 07:36 | DIAGNOSTIC IMAGING REPORT ---
CHEST ONE VIEW PORTABLE HISTORY: 82 years-old Male LLL acute left lower lobe pneumonia. COMPARISON: Chest radiograph 05/09/2017 TECHNIQUE: Portable upright AP view of the chest FINDINGS: Cardiac silhouette is again moderately enlarged. Tiny left apical pneumothorax is unchanged. There is stable positioning of the left-sided chest tube. Mild amount of subcutaneous emphysema is seen along the left chest wall. Subsegmental left basilar opacity is again seen. There is mild pulmonary vascular congestion. Fiducial markers are again seen projecting over the right upper lobe. The bones are grossly intact. IMPRESSION: 1. Persistent tiny left apical pneumothorax with stable positioning of left-sided chest tube. 2. Unchanged subsegmental left basilar opacity suggesting atelectasis or pneumonia. 3. Cardiomegaly without overt pulmonary edema. The above report was generated using voice recognition software. It may contain grammatical, syntax or spelling errors. Electronically signed by: Burak Sweeney M.D. 05/10/2017 7:35 AM Dictated Date/Time: 05/10/2017 7:32 AM
[2017-05-10 07:45] VITALS: O2SAT 97
[2017-05-10] MEDS: RANITIDINE HCL 150 MG TAB PO SCH ×2 (08:25→21:38)
[2017-05-10] MEDS: DOCUSATE SODIUM 100 MG CAP PO SCH ×2 (08:25→21:38)
[2017-05-10] MEDS: SIMVASTATIN 40 MG TAB PO SCH (08:26)
[2017-05-10] MEDS: LISINOPRIL 40 MG TAB PO SCH (08:26)
[2017-05-10] MEDS: ENOXAPARIN 40 MG/0.4 ML SYR SQ SCH (08:26)
[2017-05-10] MEDS ORDERED: TAMSULOSIN HCL 0.4 MG CAP PO SCH (09:00)
[2017-05-10] MEDS ORDERED: BISACODYL 10 MG SUPP PR PRN (09:00)
[2017-05-10] MEDS ORDERED: SOD PHOSPHATE/SOD BIPHOSPHATE ENEMA 132 ML BTL PR PRN (09:00)
[2017-05-10] MEDS ORDERED: PIPERACILL/TAZOBAC CONSULT ACTIVE PRN (09:15)
--- NOTE | 2017-05-10 09:27 | SURGERY PROGRESS NOTE ---
DATE: 05/10/2017 DATE: 05/10/2017 Mr. Vidales was seen today. We removed his chest tube. His pain is much better. He is ambulating in the hallway. He is on room air. He is moving his bowels. A concern I have is that he has had a productive cough which has developed since last night. He coughed up green and yellow sputum today which appears to be deep. His lungs sound good bilaterally after removing the chest tube, but I am concerned about. I did not see evidence of but pneumonia. At this point, I am concerned about sending him home. I am going to keep him for 1 day with parenteral antibiotics and see how he looks tomorrow if he is improved we will transition him to p.o. antibiotics and send him home. Pathology is still pending.
[2017-05-10] MEDS ORDERED: PIPERACILL/TAZOBAC IV 3.375 GM in DEXTROSE 5% 100ML 100 ML IV ONE (09:30)
--- NOTE | 2017-05-10 09:36 | DIAGNOSTIC IMAGING REPORT ---
CHEST ONE VIEW PORTABLE HISTORY: 82 years-old Male chest tube removal a follow-up study. COMPARISON: Chest radiograph 05/10/2017 at 7:07 AM TECHNIQUE: Portable upright AP view of the chest. FINDINGS: Additional markers are noted within the region of the right upper lobe. Cardiac silhouette is moderately enlarged. There is atherosclerosis of the aorta. Persistent subsegmental left or the right bibasilar opacities are noted. Decreased amount of subcutaneous emphysema of the left lateral chest wall. Persistent small left apical pneumothorax is seen, visceropleural separation of 4 mm. Chest tube has been removed in the interval. The bones are grossly intact. IMPRESSION: 1. Unchanged tiny left apical pneumothorax with interval removal of left-sided chest tube. 2. Stable subsegmental bibasilar opacities suggest atelectasis. The above report was generated using voice recognition software. It may contain grammatical, syntax or spelling errors. Electronically signed by: Burak Sweeney M.D. 05/10/2017 9:34 AM Dictated Date/Time: 05/10/2017 9:18 AM
[2017-05-10] MEDS: POLYETHYLENE (MIRALAX) 17 GM PACK PO SCH (10:08)
[2017-05-10] MEDS ORDERED: PIPERACILL/TAZOBAC IV 3.375 GM in DEXTROSE 5% 100ML 100 ML IV SCH (12:00)
[2017-05-10] MEDS: OXYCODONE HCL IR 5 MG TAB (IMMEDIATE RELEASE) PO PRN (14:33)
[2017-05-10 15:31] VITALS: BP 144/79; PULSE 73; TEMP 36.4; O2SAT 94
[2017-05-10] MEDS: PIPERACILL/TAZOBAC IV 3.375 GM in DEXTROSE 5% 100ML IV SCH (16:19)
[2017-05-10] MEDS: FINASTERIDE 5 MG TAB PO SCH (21:38)
[2017-05-10] MEDS: TAMSULOSIN HCL 0.4 MG CAP PO SCH (21:39)
[2017-05-10 23:25] VITALS: BP 158/77; PULSE 83; TEMP 36.7; O2SAT 93
[2017-05-11] MEDS: PIPERACILL/TAZOBAC IV 3.375 GM in DEXTROSE 5% 100ML IV SCH ×4 (00:02→23:54)
[2017-05-11] MEDS: ACETAMINOPHEN 325 MG TAB PO SCH ×5 (00:02→23:54)
[2017-05-11 06:54] VITALS: BP 151/78; PULSE 70; TEMP 36.6; O2SAT 94
--- NOTE | 2017-05-11 07:20 | Surgery Progress Note ---
Subjective Date of Service: May 11, 2017. Pt. notes he is doing well. He notes improvement since yesterday. Previously noted cough has improved. No shakes, chills, fevers. No N/V or abdominal pain. He denies dysuria, frequency, or hesitancy. Objective Vitals Date Time Temp Pulse Resp B/P (MAP) Pulse Ox O2 Delivery O2 Flow Rate FiO2 05/11/17 06:54 36.6 70 20 151/78 (102) 94 Room Air 05/11/17 00:05 Room Air 05/10/17 23:25 36.7 83 20 158/77 (104) 93 Room Air 05/10/17 16:00 Room Air 05/10/17 15:31 36.4 73 18 144/79 (100) 94 Room Air 05/10/17 07:45 97 Room Air 05/10/17 07:17 36.7 65 16 162/81 (108) 94 Room Air Physical Exam General: + well developed, + well nourished, No distress CV: + RRR Pulmonary: + wheezing (noted bilaterally at end of expiration ), No accessory muscle use, No respiratory distress Abdomen: + non-distended, + non tender, + soft Neurologic: + alert & oriented x 3 Assessment & Plan 82 year old male s/p LLL -continue mobilization and use of IS -concern noted yesterday for URI: -zosyn started (day #2 today)--will plan on transitioning to oral Augmentin at time of d/c -will add nebs due to wheezing that was noted OTHER -Lovenox for DVT prevention -keep inhospital due to need for parenteral abx.
[2017-05-11] MEDS ORDERED: ALBUT/IPRATROP 3MG/0.5MG NEB 3 ML VIAL INH PRN (07:30)
[2017-05-11 08:27] LABS: CREATININE 0.9 mg/dl (0.60-1.40)
[2017-05-11] MEDS: DOCUSATE SODIUM 100 MG CAP PO SCH ×2 (09:43→21:39)
[2017-05-11] MEDS: RANITIDINE HCL 150 MG TAB PO SCH ×2 (09:43→21:39)
[2017-05-11] MEDS: POLYETHYLENE (MIRALAX) 17 GM PACK PO SCH (09:43)
[2017-05-11] MEDS: SIMVASTATIN 40 MG TAB PO SCH (09:44)
[2017-05-11] MEDS: LISINOPRIL 40 MG TAB PO SCH (09:44)
[2017-05-11] MEDS: ENOXAPARIN 40 MG/0.4 ML SYR SQ SCH (09:45)
[2017-05-11 15:27] VITALS: BP 160/83; PULSE 80; TEMP 36.6; O2SAT 96
[2017-05-11] MEDS: OXYCODONE HCL IR 5 MG TAB (IMMEDIATE RELEASE) PO PRN (18:13)
[2017-05-11] MEDS: TAMSULOSIN HCL 0.4 MG CAP PO SCH (21:40)
[2017-05-11] MEDS: FINASTERIDE 5 MG TAB PO SCH (21:40)
[2017-05-11 23:00] VITALS: BP 126/84; PULSE 79; TEMP 36.6; O2SAT 96
[2017-05-12] MEDS: ACETAMINOPHEN 325 MG TAB PO SCH ×2 (05:41→11:37)
[2017-05-12 07:05] VITALS: BP 148/81; PULSE 75; TEMP 36.5; O2SAT 95
[2017-05-12 07:20] LABS: CREATININE 0.81 mg/dl (0.60-1.40)
[2017-05-12] MEDS ORDERED: CLC100 PO (08:10)
[2017-05-12] MEDS: PIPERACILL/TAZOBAC IV 3.375 GM in DEXTROSE 5% 100ML IV SCH (08:14)
[2017-05-12] MEDS ORDERED: AMOX875T PO (08:29)
[2017-05-12] MEDS ORDERED: TRAM-10 PO (08:29)
--- NOTE | 2017-05-12 08:32 | Discharge Instructions ---
Discharge Instructions Date of Service May 12, 2017. Admission Reason for Admission: Mass Left Lobe Of Lung Discharge Discharge Diagnosis / Problem: Mass Left Lobe Of Lung Discharge Goals Goal(s): Learn about illness Activity Recommendations Activity Limitations: as noted below Lifting Limitations: none 1. You may remove all dressings and shower in 3 days. No tub baths. 2. Do [address] drive if taking ultram. 3. DO not fly until cleared to do so by Dr. Mott. . Instructions / Follow-Up Instructions / Follow-Up 1. Office appointment with Dr Mott in 1 week. Office will call you with date and time of appointment. Go to hospital 1 hour before appointment to have a chest x-ray taken. Current Hospital Diet Patient's current hospital diet: Regular Diet Discharge Diet Recommended Diet: Regular Diet Procedures Procedures Performed: Electromagnetic Navigational Bronchoscopy with Fiducial Markers, Thorascopic Left Lower Lobectomy with Mediastinal Lymphadenectomy Pending Studies Studies pending at discharge: no Medical Emergencies . Who to Call and When: Medical Emergencies: If at any time you feel your situation is an emergency, please call 911 immediately. . Non-Emergent Contact Non-Emergency issues call your: Surgeon Call Non-Emergent contact if: you have a fever, your pain is not controlled, wound has increased drainage . "Provider Documentation" section prepared by Bandar Edouard. . VTE Core Measure Inpt VTE Proph given/why not?: Enoxaparin (Lovenox)SQ
[2017-05-12] MEDS: DOCUSATE SODIUM 100 MG CAP PO SCH (09:00)
[2017-05-12] MEDS: POLYETHYLENE (MIRALAX) 17 GM PACK PO SCH (11:34)
[2017-05-12] MEDS: LISINOPRIL 40 MG TAB PO SCH (11:35)
[2017-05-12] MEDS: RANITIDINE HCL 150 MG TAB PO SCH (11:35)
[2017-05-12] MEDS: SIMVASTATIN 40 MG TAB PO SCH (11:35)
[2017-05-12] MEDS: ENOXAPARIN 40 MG/0.4 ML SYR SQ SCH (11:37)
[2017-05-12 11:54] VITALS: BP 148/81; PULSE 75; TEMP 36.5; O2SAT 95
--- NOTE | 2017-05-12 15:39 | Discharge Summary ---
Discharge Summary Date of Service May 12, 2017. Discharge Summary Admission Date: May 08, 2017 at 06:40 Discharge Date: May 12, 2017 Discharge Disposition: Home Principal Diagnosis: Lung Cancer Problems/Secondary Diagnoses: 1. Urinary retention Procedures: 1. Navigational bronchoscopy with place of fiducial marker in RUL lesion 2. Left VATS with LLL and Lymphadenectomy Medication Reconciliation New Medications: Amoxicillin & Pot Clavulanate (Augmentin 875-125 mg) 1 Tab Tab 875 MG PO BID for 10 Days, #14 TAB Tramadol (Ultram) 50 Mg Tab 50 MG PO Q4H PRN for Pain, #30 TAB Docusate Sodium (Docusate Sodium) 100 Mg Cap 100 MG PO BID for 30 Days, #60 CAP 0 Refills Continued Medications: Finasteride (Proscar) 5 Mg Tab 5 MG PO HS, TAB Lisinopril (Zestril) 40 Mg Tab 40 MG PO QAM, TAB Naproxen Sodium (Aleve) 220 Mg Tab 220 MG PO Q8 PRN for Pain, TAB Ranitidine (Zantac) 150 Mg Tab 150 MG PO BID, TAB Simvastatin (Zocor) 40 Mg Tab 40 MG PO QAM, TAB Tamsulosin HCl (Tamsulosin HCl) 0.4 Mg Cap 0.4 CAP PO QPM Discharge Exam Review of Systems: Constitutional: No fever, No chills Respiratory: + cough, No shortness of breath Cardiovascular: No chest pain Abdomen: No pain, No nausea, No vomiting Genitourinary - Male: No urinary retention Physical Exam: General Appearance: WD/WN, no apparent distress Respiratory/Chest: no respiratory distress, no accessory muscle use, + wheezing (occaisional at end of expiration ) Cardiovascular: regular rate, rhythm Abdomen / GI: non tender, soft Extremities: no calf tenderness Neurologic/Psychiatric: alert, oriented x 3 Hospital Course 82 year old male with bilateral lung masses -pt. had navigational bronchoscopy with placement of fiducial markers in right sided lesion -left VATS with LLL and lymphadenectomy performed -preliminary path concerning for squamous cell carcinoma -postop course concerning for: -urinary retention: -pt. required wilson cath but had voiding trial therafter that was successful -pt. maintained on proscar and flomax at home doses -URI: -zosyn started (05/10/17) and pt. transitioned to oral augmentin at time of d/c (10 day course prescribed) -chest tube managed and discontinued in appropriate fashion -use of IS and mobilization continually encouraged OTHER -Lovenox for DVT prevention Total Time Spent: Greater than 30 minutes This includes examination of the patient, discharge planning, medication reconciliation, and communication with other providers. Discharge Instructions Please refer to the electronic Patient Visit Report (Discharge Instructions) for additional information. Follow-Up 1. Dr. Mott in 1 week with CXR Additional Copies To Raisa Bright M.D.
== END 2017-05-12 12:30 | disposition home health service (06) | DRG 165 ==
LOC: C.ACU 05:18 → C.MSN 06:40 → ENRESERV 12:05 → C.MSN 13:28
PROVIDERS: ADMIT Surgery; ATTEND Surgery
PROC: 07B74ZX Excision of Thorax Lymphatic, Percutaneous Endoscopic Approach, Diagnostic (ICD-10-PCS; principal; 2017-05-08 07:15)
PROC: 0BTJ4ZZ Resection of Left Lower Lung Lobe, Percutaneous Endoscopic Approach (ICD-10-PCS; principal; 2017-05-08 07:15)
PROC: 0B9C8ZX Drainage of Right Upper Lung Lobe, Via Natural or Artificial Opening Endoscopic, Diagnostic (ICD-10-PCS; 2017-05-08 07:15)
DX: C34.32 Malignant neoplasm of lower lobe, left bronchus or lung (principal); R33.9 Retention of urine, unspecified; J06.9 Acute upper respiratory infection, unspecified; Z80.1 Family history of malignant neoplasm of trachea, bronchus and lung; Z87.891 Personal history of nicotine dependence

== ENCOUNTER → 2017-05-20 | Outpatient (CLI) | payer BC ==
[~2017-05-20] MED LIST changes: +AMOX875T PO; +CLC100 PO; +TRAM-10 PO
--- NOTE | 2017-05-20 10:14 | DIAGNOSTIC IMAGING REPORT ---
CHEST 2 VIEWS ROUTINE CLINICAL HISTORY: Z90.2 S/P lobectomy of [id number] COMPARISON STUDY: 05/10/2017 FINDINGS: Postsurgical changes are present on the left. There is been resolution of the previously identified subcutaneous emphysema. Fiducial markers are visualized in the right upper lung zone unchanged the prior study. There is left lung volume loss consistent with prior surgery. Persistent left basilar opacities, likely atelectatic again evident.[ IMPRESSION: Postsurgical changes in the left. No acute findings. Resolution of the left-sided subcutaneous emphysema. Interval resolution of the previously identified pneumothorax. Electronically signed by: Jeevan Cortes M.D. 05/20/2017 10:13 AM Dictated Date/Time: 05/20/2017 10:12 AM
== END | disposition home or self-care (01) ==
LOC: C.RAD 09:26
PROVIDERS: ATTEND Surgery
DX: Z90.2 Acquired absence of lung [part of] (principal)

== ENCOUNTER → 2017-06-24 | Outpatient (CLI) | payer BC ==
[~2017-06-24] MED LIST changes: -AMOX875T PO
--- NOTE | 2017-06-25 07:25 | DIAGNOSTIC IMAGING REPORT ---
PET/CT SKULL-THIGH HISTORY: Lung carcinoma NON SMALL CELL LUNG CANCER TECHNIQUE: PET/CT was performed from the base of the skull through the pelvis following the intravenous administration of 15.2 mCi of F18-FDG. Non-contrast CT imaging was performed over the same range without breath-hold for attenuation correction of PET images and anatomic correlation, but not for primary interpretation as it is not of standard diagnostic quality. CT DOSE: COMPARISON: 02/27/2017 FINDINGS: HEAD AND NECK: There is no FDG-avid disease or significant lymphadenopathy in the imaged portions of the head and the neck. CHEST: Pulmonary nodularity is again noted. The right upper lung nodular density has increased from 1 to 1.3 cm. Several very small surrounding nodular densities are slightly increased in visibility although they are too small to register with SUV characteristics. SUV characteristics is approximately 4.2 involving the 1.3 cm nodule. There is a mild increase in size of a right midlung nodule best seen image 76. This measures 4.5 cm and again is too small to register in reference to metabolic activity. Several poorly defined micronodules less than 3 mm are noted bilaterally. These appear slightly progressive. There appears to have been resolution and/or resection of the spiculated left lower lobe mass. Moderate pleural thickening is identified in the left lung base. Pleural thickening shows a minimal increase in SUV activity to approximately 1.8 which is indeterminate in terms of significance. Physiologic activity is identified within the myocardium. Postoperative changes are identified in the left lateral chest wall region best seen transaxial image 93. ABDOMEN/PELVIS: Below the diaphragm, tracer is distributed physiologically in the gastrointestinal and genitourinary tracts. There is no significant lymphadenopathy and no FDG-avid disease. MUSCULOSKELETAL: There is no FDG-avid or destructive bone lesion. IMPRESSION: 1. Interval resection and/or resolution of the spiculated nodule left lung base. 2. Moderate residual postoperative changes left lung base most likely on a postoperative basis. 3. Mildly progressive pulmonary nodularity of the right hemithorax. 4. This is highly suspect for progressive metastatic change. 5. Remainder the study remain stable and unremarkable. The above report was generated using voice recognition software. It may contain grammatical, syntax or spelling errors. Electronically signed by: Junior Mckinney M.D. 06/25/2017 7:24 AM Dictated Date/Time: 06/25/2017 7:10 AM
== END | disposition home or self-care (01) ==
LOC: C.PET 13:45
PROVIDERS: ATTEND Surgery
DX: C34.32 Malignant neoplasm of lower lobe, left bronchus or lung (principal)

== ENCOUNTER 2017-08-16 08:27 | Inpatient (IN) | payer BC, OTHER ==
[2017-08-16] VITALS (15 sets, daily range): BP systolic 130–158; BP diastolic 49–85; PULSE 64–104; TEMP 36.4–36.6; O2SAT 92–98; Ht 180.3 cm; Wt 100.0 kg
[~2017-08-16] VITALS: Ht 180.3 cm; Wt 100.0 kg
[~2017-08-16 08:27] MED LIST changes: -CLC100 PO; +DUTA0.5C PO; -FINA5TAB PO; +LACTATED RINGER'S 1000ML 1,000 ML IV SCH; +PRLSR20 PO; +TERA5CAP PO; -TRAM-10 PO; -ZNTT/150 PO
[2017-08-16] MEDS ORDERED: FENTANYL CITRATE INJ 50 MCG/1 ML 2 ML VIAL ONE ×3 (11:02→12:38)
[2017-08-16] MEDS ORDERED: SODIUM CHLORIDE 0.9% PF 50 ML VIAL ONE (11:13)
[2017-08-16] MEDS ORDERED: BUPIVACAINE LIPOSOME 1/3% 266 MG/20 ML VIAL INFIL ONE (11:13)
[2017-08-16] MEDS ORDERED: SURGICEL ABSORB HEMOSTAT 2IN X 14IN TOP ONE ×4 (13:35→15:52)
[2017-08-16] MEDS ORDERED: EpHEDrine SULFATE INJ 50 MG/ML AMP IV PRN (14:00)
[2017-08-16] MEDS ORDERED: PHENYLEPHRINE 100MCG/ML 5ML SYR IV PRN (14:00)
[2017-08-16] MEDS ORDERED: HYDROmorphone INJ 2 MG/ML SYR/VIAL IV PRN (14:00)
[2017-08-16] MEDS ORDERED: ATROPINE SULFATE 0.1 MG/ML 5ML SYR IV PRN (14:00)
[2017-08-16] MEDS ORDERED: ONDANSETRON INJ 2 MG/ML 2 ML VIAL IV PRN ×2 (14:00→16:45)
[2017-08-16] MEDS ORDERED: PROPOFOL IV EMULSION 10 MG/ML 20 ML VIAL IV ONE (14:12)
[2017-08-16] MEDS ORDERED: LIDOCAINE HCL 2% 2 ML VIAL (20MG/ML) ONE (14:12)
[2017-08-16] MEDS ORDERED: ONDANSETRON INJ 2 MG/ML 2 ML VIAL ONE (14:12)
[2017-08-16] MEDS ORDERED: NEOSTIGMINE METHYLSULFATE 5 MG/5 ML SYR ONE (14:12)
[2017-08-16] MEDS ORDERED: PHENYLEPHRINE HCL INJ 10 MG/ML VIAL ONE ×2 (14:12→15:23)
[2017-08-16] MEDS ORDERED: DEXAMETHASONE SOD INJ 4 MG/ML VIAL ONE (14:12)
[2017-08-16] MEDS ORDERED: CEFAZOLIN SOD 1 GM VIAL ONE (14:12)
[2017-08-16] MEDS ORDERED: PHENYLEPHRINE 100MCG/ML 5ML SYR ONE (14:12)
[2017-08-16] MEDS ORDERED: GLYCOPYRROLATE INJ 0.2 MG/ML VIAL ONE (14:12)
[2017-08-16] MEDS ORDERED: CEFAZOLIN IV 2,000 MG in DEXTROSE 5% 50ML 100 ML IV SCH (16:45)
[2017-08-16] MEDS ORDERED: HYDROmorphone INJ 1 MG/ML SYR ONE (17:00)
--- NOTE | 2017-08-16 17:10 | DIAGNOSTIC IMAGING REPORT ---
CHEST ONE VIEW PORTABLE CLINICAL HISTORY: 82 years-old Male presenting with RUL mass. TECHNIQUE: Portable upright AP view of the chest was obtained. COMPARISON: 05/20/2017. FINDINGS: Atherosclerosis of aortic arch. The left heart border is partially obscured similar to prior exam. A large bore right pleural drain is in place with extensive subcutaneous emphysema at the right base of the neck as well as along the inferior right lateral chest wall. An anterior right pneumothorax is suggested though no significant pneumothorax is evident at the apex despite upright positioning. Increased right paramediastinal opacity with elevation of the right minor fissure in comparison to prior. Overall mildly low lung volumes. Left pleural effusion cannot be excluded. Degenerative changes of the thoracic spine. Degenerative changes of the right glenohumeral joint also suspected. Upper abdomen normal. IMPRESSION: 1. Large bore right pleural drain. An anterior right pneumothorax may be present though no apical pneumothorax is evident despite upright positioning. This is equivocal. If there is clinical concern, dedicated PA radiograph could be obtained. 2. Right paramediastinal opacity with elevation of the right minor fissure (moreno S sign) could suggest an obstructing central lesion in the right upper lobe. 3. Persistent left basilar opacity, possibly atelectasis and pleural fluid. This is not significantly changed from prior. Electronically signed by: Miguel Steward M.D. 08/16/2017 5:08 PM Dictated Date/Time: 08/16/2017 5:05 PM
--- NOTE | 2017-08-16 17:36 | Anesthesiology Progress Note ---
Anesthesia Post Op Note Date & Time Aug 16, 2017 at 17:35 Vital Signs Pain Intensity: 0 Vital Signs Past 12 Hours Date Time Temp Pulse Resp B/P (MAP) Pulse Ox O2 Delivery O2 Flow Rate FiO2 08/16/17 17:15 80 18 159/68 94 Oxymask 10 08/16/17 17:05 77 18 96 Oxymask 10 08/16/17 16:55 79 18 112/56 97 Oxymask 10 08/16/17 16:47 36.5 70 18 111/63 98 Oxymask 10 08/16/17 09:14 36.4 64 20 153/85 97 Room Air Notes Mental Status: alert / awake / arousable, participated in evaluation Pt Amnestic to Procedure: Yes Nausea / Vomiting: adequately controlled Pain: adequately controlled Airway Patency, RR, SpO2: stable & adequate BP & HR: stable & adequate Hydration State: stable & adequate Anesthetic Complications: no major complications apparent
--- NOTE | 2017-08-16 17:37 | DIAGNOSTIC IMAGING REPORT ---
CHEST ONE VIEW PORTABLE CLINICAL HISTORY: 82 years-old Male presenting with post bronc, right lung mass. TECHNIQUE: Portable upright AP view of the chest was obtained. COMPARISON: 08/16/2017 at 4:50 PM. FINDINGS: Large bore right pleural drain remains position at the right apex. Associated subcutaneous emphysema along the inferior right lateral chest wall and right base of the neck. Multiple overlying external leads degrade image quality. Low lung volumes with obscuration of the left heart border and left hemidiaphragm. Increasing left basilar opacity. Right paramediastinal opacity with apparent elevation of the right minor fissure. Radiolucency at the paramediastinal right lung base without evidence of right apical radiolucency to suggest pneumothorax. Degenerative changes of the glenohumeral joints. Upper abdomen normal. IMPRESSION: 1. Radiolucency at the right paramediastinal lung base could relate to anterior pneumothorax, however, no right apical radiolucency to corroborate the presence of pneumothorax. 2. Persistent right paramediastinal opacity. 3. Increasing left basilar predominant opacity possibly with layering pleural fluid. 4. Overall low lung volumes. Electronically signed by: Miguel Steward M.D. 08/16/2017 5:36 PM Dictated Date/Time: 08/16/2017 5:33 PM
[2017-08-16] MEDS: D5W AND 1/2NSS 1,000 ML IV SCH (18:24)
[2017-08-16] MEDS: KETOROLAC TROMETHAMINE 15 MG/ML VIAL IV. SCH (18:24)
[2017-08-16] MEDS: METOCLOPRAMIDE HCL INJ 5 MG/ML 2 ML VIAL IV. SCH (18:24)
--- NOTE | 2017-08-16 18:54 | Critical Care Consultation ---
Critical Care Consultation Date of Consultation: Aug 16, 2017. Attending Physician: Selvin Mott MD Reason for Consultation: Postop thoracotomy. History of Present Illness Dear : Thank you for your kind referral of Mr. Rudolph to critical care service. This is 82-year-old nice gentleman with a history of obstructive lung disease, COPD Gold level II, history of left lower lobe resection secondary to non-small cell lung CA, underwent right upper lobe lobectomy for right upper lobe lesion. The procedure was done thoracoscopically using da Mal system. The patient had a chest tube in place and was brought to the ICU after the procedure. He was already extubated. The patient appeared lethargic but he was answering questions following commands. He had minimal pain no nausea or vomiting. No cough. Apparently the patient had mucoid impaction in the right lobe and underwent a bronchoscopy by Dr. Mott with removal of an dual luminal secretions. The review of system otherwise was unremarkable. Social History Smoking Status: Former Smoker Allergies Coded Allergies: No Known Allergies (Unverified , 08/05/17) Home Medications Scheduled Dutasteride (Avodart), 0.5 MG PO QAM Lisinopril (Zestril), 40 MG PO QAM Omeprazole (Prilosec), 10 MG PO QAM Tamsulosin HCl (Tamsulosin HCl), 0.4 CAP PO QPM Scheduled PRN Naproxen Sodium (Aleve), 220 MG PO Q8 PRN for Pain Current Inpatient Medications Current Inpatient Medications Medications (Trade) Dose Ordered Sig/Lupe Route Start Time Stop Time Status Last Admin Dose Admin Lactated Ringer's 1,000 ml @ 15 mls/hr Q24H IV 08/16/17 06:00 08/17/17 05:59 08/16/17 09:02 15 MLS/HR Hydromorphone HCl (Dilaudid Inj) 0.5 mg Q5M PRN IV 08/16/17 14:00 08/16/17 19:00 08/16/17 17:02 0.5 MG Ondansetron HCl (Zofran Inj) 4 mg ONE PRN IV 08/16/17 14:00 08/16/17 19:00 Ephedrine Sulfate (EpHEDrine SULFATE INJ) 5 mg Q5M PRN IV 08/16/17 14:00 08/16/17 19:00 Atropine Sulfate (Atropine Sulfate 0.1MG/Ml Inj) 0.5 mg Q1M PRN IV 08/16/17 14:00 08/16/17 19:00 Phenylephrine HCl (Floyd-Synephrine 500MCG/5ML Syr) 100 mcg Q5M PRN IV 08/16/17 14:00 08/16/17 19:00 Lisinopril (Zestril Tab) 40 mg QAM PO 08/17/17 09:00 09/16/17 08:59 Tamsulosin HCl (Flomax Cap) 0.4 mg QPM PO 08/16/17 21:00 09/15/17 20:59 Miscellaneous Information (Order Awaiting Action) 1 ea QS N/A 08/17/17 00:00 09/16/17 00:00 Pantoprazole Sodium (Protonix Tab) 40 mg QAM PO 08/17/17 09:00 09/16/17 08:59 Acetaminophen 1000 mg/Empty Bag 100 ml @ 400 mls/hr Q8H IV 08/16/17 20:00 09/15/17 19:59 Oxycodone HCl (Roxicodone Immediate Rel Tab) 5 mg Q6H PRN PO 08/16/17 16:45 08/30/17 16:44 Enoxaparin Sodium (Lovenox Inj) 40 mg DAILY SQ 08/17/17 09:00 09/16/17 08:59 UNV Dextrose/Sodium Chloride 1,000 ml @ 100 mls/hr Q10H IV 08/16/17 18:00 09/15/17 17:59 08/16/17 18:24 100 MLS/HR Ondansetron HCl (Zofran Inj) 4 mg Q4H PRN IV 08/16/17 16:45 09/15/17 16:44 Docusate Sodium (coLACE CAP) 100 mg BID PO 08/16/17 21:00 09/15/17 20:59 Ketorolac Tromethamine (Toradol Inj) 15 mg Q8H IV. 08/16/17 18:00 08/18/17 10:01 08/16/17 18:24 15 MG Metoclopramide HCl (Reglan Inj) 10 mg Q8H IV. 08/16/17 18:00 12/16/17 17:59 08/16/17 18:24 10 MG Morphine Sulfate (MoRPHine SULFATE INJ) 2 mg Q1H PRN IV 08/16/17 16:45 08/30/17 16:44 Cefazolin Sodium 2000 mg/Syringe 10 ml @ 2.5 mls/min Q8H IV 08/16/17 22:00 08/17/17 06:03 Review of Systems Constitutional: No fever, No chills, No sweats, No weight loss, No weakness, No fatigue, No problem reported Respiratory: + cough, No sputum, No wheezing, No shortness of breath, No dyspnea on exertion, No dyspnea at rest, No hemoptysis, No problem reported Cardiovascular: + chest pain, + problem reported (minimal chest pain postop understandably.) Abdomen: No pain, No nausea, No vomiting, No diarrhea, No constipation, No GI bleeding, No problem reported Musculoskeletal: No joint pain, No muscle pain, No swelling, No calf pain, No problem reported Neurologic: No memory loss, No paralysis, No weakness, No numbness/tingling, No vertigo, No balance problems, No problem reported Psychiatric: No depression symptoms, No anhedonism, No anxiety, No insomnia, No substance abuse, No problem reported Allergic / Immunologic: No environmental allergies, No seasonal allergies, No pet sensitivities, No food allergies, No hives, No frequent infections, No poor healing, No prolonged convalescence, No problem reported Physical Exam Date Time Temp Pulse Resp B/P (MAP) Pulse Ox O2 Delivery O2 Flow Rate FiO2 08/16/17 18:30 36.6 82 16 150/80 (103) 93 Nasal Cannula 4.0 08/16/17 18:00 36.5 83 18 148/57 (87) 97 Nasal Cannula 4.0 08/16/17 17:15 80 18 159/68 94 Oxymask 10 08/16/17 17:05 77 18 96 Oxymask 10 08/16/17 16:55 79 18 112/56 97 Oxymask 10 08/16/17 16:47 36.5 70 18 111/63 98 Oxymask 10 08/16/17 16:39 94 Nasal Cannula 4.0 08/16/17 09:14 36.4 64 20 153/85 97 Room Air General Appearance: well-appearing, WD/WN, no apparent distress Eyes: PERRLA, no discharge, EOMI ENT: normal mouth exam Neck: normal range of motion Respiratory: other (crackles at the right base. Chest tube in place.) Cardiovasular: regular rate/rhythm, normal S1S2, no M/G/R Abdomen: non tender, normal bowel sounds, no rebound, no masses Upper Extremities: no edema Lower Extremities: no edema Neuro: alert, oriented x 3, normal motor exam Psychiatric: normal affect Laboratory Results Last 24 Hours Test 08/16/17 18:37 Bedside Glucose 160 mg/dl Diagnostic Results Chest x-ray was reviewed which revealed volume loss of the right upper area, right lobe was inflated, pleural effusion and old changes from previous left lower lobe lobectomy. Assessment & Plan #1. Right upper lobe lobectomy. #2 COPD, goal level II. #3 morbid obesity. #4 chest pain postop is minimal, chest tube in place, no other symptoms. Plan: #1 we'll continue to monitor in ICU. #2 agree with your current management. #3 further treatment will be dictated by Dr. Mott, hopefully the patient will be discharged to the regular floor in the morning. Chest x-ray in the morning. Thank you, discussed the case with Dr. Mott in details, critical care time spent with the patient including reviewing the data was 35 minutes.
[2017-08-16] MEDS: ACETAMINOPHEN IV 1,000 MG in EMPTY BAG 0 ML IV SCH (19:21)
[2017-08-16] MEDS: MoRPHine SULFATE 2 MG/ML CARP IV PRN ×2 (19:53→23:43)
[2017-08-16] MEDS ORDERED: INFLUENZA VACCINE HIGH DOSE 65+ 0.5 ML SYR IM. ONE (20:15)
[2017-08-16] MEDS ORDERED: INFLUENZA ADMINISTRATION CHARGE ONE (20:15)
--- NOTE | 2017-08-16 20:42 | OPERATIVE REPORT ---
DATE OF OPERATION: 08/16/2017 PREOPERATIVE DIAGNOSIS: Questionable middle lobe torsion. POSTOPERATIVE DIAGNOSIS: No evidence of middle lobe torsion. PROCEDURE: Diagnostic bronchoscopy. LOCATION: PACU. ANESTHESIA: Local. SPECIFICS OF PROCEDURE: The patient just had a robotic right upper lobectomy. On his postop chest x-ray, I was concerned about a density in the upper lobe and the upper chest medially. I was afraid he may have middle lobe torsion. Rather than go back to the operating room, I elected to proceed with bronchoscopy emergently. The patient was still sedated from surgery but was off the ventilator and had good saturations. I anesthetized the right naris and went down with a small flexible fiberoptic bronchoscope. We did use Xylocaine and Xylocaine jelly. His epiglottis showed his cords were moving well. I went down and saw no evidence of any bleeding or lesions. His left lower lobe stump looked fine. The right upper lobe stump looked fine. His middle lobe bronchus was widely patent. There was no evidence of torsion. I then sucked out some sputum as I removed the scope. He tolerated it well. I attest to the content of the Intraoperative Record and any orders documented therein. Any exception s are noted below.
[2017-08-16] MEDS: TAMSULOSIN HCL 0.4 MG CAP PO SCH (20:51)
[2017-08-16] MEDS: DOCUSATE SODIUM 100 MG CAP PO SCH (20:51)
--- NOTE | 2017-08-16 21:01 | OPERATIVE REPORT ---
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 POSTOPERATIVE DIAGNOSIS: Same. PROCEDURE: 1. Robot-assisted thoracoscopic right upper lobectomy. 2. Mediastinal lymphadenectomy. SURGEON: Selvin Mott MD. GROCERY CHECKER: GUANAKO Keivn. (Mr. Edouard was present during the entire case. He was at the bedside during the robotic portion and also handled the camera we were going in and was the first mate and stayed the entirety of the case. He closed incisions at the end). ANESTHESIA: General anesthesia, endotracheal intubation using double lumen tube. SPECIFICS OF PROCEDURE: Jose Vidales is a very interesting 82-year-old male who underwent a left lower lobectomy for nonsmall cell lung carcinoma several months ago. He had 2 different carcinomas and it was elected to proceed with SBRT to his right upper lobe lesion but he really did not want that. We had a long discussion with him of the tumor complexes and rechecked his pulmonary function after his lobectomy. He would tolerate a right upper lobe. I had a long discussion with the patient and his daughter several occasions in the office and presented him at our multidisciplinary cancer conference several times. We elected to proceed with a right upper lobectomy. On 08/16/2017, the patient was brought to the operating room and underwent an uncomplicated robotic-assisted right upper lobectomy. We also did a lymphadenectomy. I did an Exparel intercostal block. He woke up without difficulty from anesthesia and he was extubated in the room. DESCRIPTION OF PROCEDURE: The patient was brought to the operating room and placed in supine position. General anesthesia induced and endotracheal intubation was performed with double lumen tube. After proper monitoring lines had been placed and prophylactic antibiotics given, the patient was placed in the left lateral decubitus position. His right chest prepped and draped in the usual sterile fashion. Appropriate timeout had been called. Five different thoracoscopy incisions were made. One 5 mm posterior port was placed about 4 cm from the midline of the spine and within the 8th interspace. I then placed two 8 mm ports and a 12 mm port in the 8th interspace, each about 10 cm apart. I placed 12 mm port in a few interspaces below for the life enrichment assistant's port. Upon going in, it could be seen there were some adhesions from the right middle lobe and upper lobe to the mediastinum and these were taken down. After taking down all these, taken down to the lower lobe. I then took down the inferior pulmonary ligament. I really did not see a level 9 node. I dissected down the level 8 and came along the posterior mediastinum and dissected out along the bronchus intermedius and the mainstem bronchus and removed a level 8 node and level 7 node. I then removed a level 10 node and then went above the azygos vein and removed a mat of level 4 and level 2 nodes. I then removed 10 nodes from posterior and removed several level 11, level 12 node. After dissecting out posteriorly, we had seen the origin of the bronchus. I completed the fissure between the lower lobe and the upper lobe and could see the take off of the artery nicely; however, it was a difficult angle to get our stapler out. For this reason, I then went anterior and superior and took down both the left pleura below the azygos vein medially and took out lymph node packets from here. I dissected out the vein. I had difficulty seeing the middle lobe vein and I had to dissect this out rather extensively before we finally got to this and got around this and fired an Endo-ANA stapler around this. We then fired an Endo-ANA stapler across apical anterior branch and this freed up things quite nicely. Upon coming down, I completed the fissure medially and upon flipping this up, we were able to fire the stapler one more time to divide the arteries; however, there was a branch which was coming from the middle lobe artery up to the upper lobe and I put a clip on this and divided it. It was rather small. We then pulled the lobe up and divided the right upper lobe bronchus with an Endo-ANA stapler. An Endobag was used to deliver this off the field. I did put a clip on one of the arterial staple lines, which was bleeding a small amount. We really did not lose much blood. We irrigated out the chest. We really did not have much of an air leak. A 24-B[place] chest tube was placed through the anterior thoracoscopy port and directed towards the apex. A 0 Vicryl was used to close the muscle layers of the larger port and we did have to enlarge the life enrichment assistant's port to get the lobe out. After irrigating this out, we undocked the robot. We then closed the incisions as stated above. 4-0 Monocryl was used to close the skin layers of each. The patient was extubated in the room and transported to the postanesthesia care unit in stable condition. I attest to the content of the Intraoperative Record and any orders documented therein. Any exception s are noted below.
[2017-08-16] MEDS: CEFAZOLIN IV 2,000 MG in SYRINGE 0 ML IV SCH (21:24)
[2017-08-16] MEDS: AVODART: ORDER AWAITING ACTION SCH (22:58)
[2017-08-17] VITALS (9 sets, daily range): BP systolic 113–140; BP diastolic 39–77; PULSE 72–86; TEMP 36.4–36.7; O2SAT 92–97
[2017-08-17] MEDS: KETOROLAC TROMETHAMINE 15 MG/ML VIAL IV. SCH ×3 (01:31→18:55)
[2017-08-17] MEDS: METOCLOPRAMIDE HCL INJ 5 MG/ML 2 ML VIAL IV. SCH ×2 (01:31→09:45)
[2017-08-17] MEDS: ACETAMINOPHEN IV 1,000 MG in EMPTY BAG 0 ML IV SCH ×2 (04:28→12:00)
[2017-08-17] MEDS: D5W AND 1/2NSS 1,000 ML IV SCH (04:29)
[2017-08-17 05:16] LABS: BASO % 0.1 %; BASO ABS # 0.01 K/uL (0-0.2); EOS % 0.2 %; EOS ABS # 0.02 K/uL (0-0.5); HEMATOCRIT 37.6 % (42-52); HEMOGLOBIN 13.1 g/dL (14.0-18.0); IG# 0.08 K/uL (0.00-0.02); LYMPH % 16.2 %; LYMPH ABS # 2.01 K/uL (1.2-3.4); MEAN CELL VOLUME 87.9 fL (80-100); MEAN CORPUSCULAR HEMOGLOBIN 30.6 pg (25-34); MEAN CORPUSCULAR HGB CONC 34.8 g/dl (32-36); MEAN PLATELET VOLUME 9.9 fL (7.4-10.4); MONO % 6.2 %; MONO ABS # 0.77 K/uL (0.11-0.59); NEUT % 76.7 %; PLATELET COUNT 121 K/uL (130-400); RED CELL DISTRIBUTION WIDTH SD 48.1 fL (36.4-46.3); WHITE BLOOD COUNT 12.39 K/uL (4.8-10.8)
[2017-08-17 05:26] LABS: INR 1.1 (0.9-1.1)
[2017-08-17 05:39] LABS: CALCIUM 7.6 mg/dl (8.5-10.1); CREATININE 0.93 mg/dl (0.60-1.40); POTASSIUM 3.7 mmol/L (3.5-5.1)
[2017-08-17] MEDS: CEFAZOLIN IV 2,000 MG in SYRINGE 0 ML IV SCH (06:08)
[2017-08-17] MEDS: AVODART: ORDER AWAITING ACTION SCH ×3 (07:26→23:39)
--- NOTE | 2017-08-17 07:52 | DIAGNOSTIC IMAGING REPORT ---
CHEST ONE VIEW PORTABLE HISTORY: Right upper lobectomy. Postop. COMPARISON: Chest 08/16/2017. FINDINGS: Right-sided chest tube remains unchanged in position. Small right apical medial pneumothorax. The heart is stable in size. Suspect a trace left pleural effusion. Right superior ventricular subcutaneous emphysema has slightly improved. IMPRESSION: Small right apical medial pneumothorax. The right chest tube is unchanged in position. Electronically signed by: Kenny Delaney M.D. 08/17/2017 7:51 AM Dictated Date/Time: 08/17/2017 7:49 AM
--- NOTE | 2017-08-17 08:17 | SURGERY PROGRESS NOTE ---
DATE: 08/17/2017 SUBJECTIVE: Sobeida was seen today on 08/17/2017, 1 day after a robotic right upper lobectomy and mediastinal lymphadenectomy. He looks superb. He is on room air. He is sitting up in the chair. He just finished breakfast and eating a regular diet. His lungs sound great. He has no air leak. He has only drained 80 mL of a serous fluid over the last shift. His x-ray looks very good. I reviewed all of his labs and all look quite good too with hemoglobin of 13.1. ASSESSMENT AND PLAN: Postop day #1, status post robot-assisted thoracoscopic right upper lobectomy and mediastinal lymphadenectomy. We are going to transfer him to the floor. He should be going home in the next 1-2 days. ELIANA
[2017-08-17] MEDS: DOCUSATE SODIUM 100 MG CAP PO SCH ×2 (08:46→21:41)
[2017-08-17] MEDS: ENOXAPARIN 40 MG/0.4 ML SYR SQ SCH (08:46)
[2017-08-17] MEDS: PANTOprazole SOD 40 MG TAB PO SCH (08:46)
[2017-08-17] MEDS: LISINOPRIL 40 MG TAB PO SCH (08:46)
[2017-08-17] MEDS ORDERED: NURSING VERBAL MED ORDER ONE ×2 (12:45→18:30)
[2017-08-17] MEDS: OXYCODONE HCL IR 5 MG TAB (IMMEDIATE RELEASE) PO PRN ×2 (15:23→23:42)
[2017-08-17] MEDS ORDERED: POLYETHYLENE (MIRALAX) 17 GM PACK ONE (18:41)
[2017-08-17] MEDS: POLYETHYLENE (MIRALAX) 17 GM PACK PO SCH (18:53)
[2017-08-17] MEDS: TAMSULOSIN HCL 0.4 MG CAP PO SCH (21:41)
[2017-08-17] MEDS: ACETAMINOPHEN 500 MG TAB PO SCH (21:41)
[2017-08-18] MEDS: KETOROLAC TROMETHAMINE 15 MG/ML VIAL IV. SCH ×2 (02:10→09:49)
[2017-08-18] MEDS: ACETAMINOPHEN 500 MG TAB PO SCH ×3 (05:39→21:13)
--- NOTE | 2017-08-18 06:06 | DIAGNOSTIC IMAGING REPORT ---
CHEST ONE VIEW PORTABLE CLINICAL HISTORY: 82 years-old Male presenting with RUL. TECHNIQUE: Portable upright AP view of the chest was obtained. COMPARISON: 08/17/2017. FINDINGS: Large bore right pleural drain remains positioned at the right apex. Atherosclerosis of aortic arch. Cardiac silhouette remains mildly prominent with obscuration of the left heart border. Right upper paramediastinal opacity persists. Possible medial right apical pneumothorax suggested given right paratracheal radiolucency. Left pleural effusion suspected. Degenerative changes of the glenohumeral joints. Upper abdomen normal. IMPRESSION: 1. Right pleural drain remains in place with possible paramediastinal trace right apical pneumothorax. 2. Persistent right upper paramediastinal opacity. 3. Left pleural effusion and basilar consolidation, possibly atelectasis. This is stable to slightly increased from prior. Electronically signed by: Miguel Steward M.D. 08/18/2017 6:05 AM Dictated Date/Time: 08/18/2017 6:02 AM
[2017-08-18 07:04] VITALS: BP 127/71; PULSE 76; TEMP 36.8; O2SAT 96
[2017-08-18] MEDS: PANTOprazole SOD 40 MG TAB PO SCH (08:29)
[2017-08-18] MEDS: LISINOPRIL 40 MG TAB PO SCH (08:29)
[2017-08-18] MEDS: DOCUSATE SODIUM 100 MG CAP PO SCH ×2 (08:29→21:12)
[2017-08-18] MEDS: ENOXAPARIN 40 MG/0.4 ML SYR SQ SCH (08:30)
[2017-08-18] MEDS: AVODART: ORDER AWAITING ACTION SCH ×3 (08:32→23:56)
[2017-08-18] MEDS: POLYETHYLENE (MIRALAX) 17 GM PACK PO SCH ×2 (08:32→21:11)
--- NOTE | 2017-08-18 10:36 | Surgery Progress Note ---
Subjective Date of Service: Aug 18, 2017. Pt. denies CP or SOB. He is ambulating in hallway and tolerating oral intake. No difficulty voiding. Objective Vitals Date Time Temp Pulse Resp B/P (MAP) Pulse Ox O2 Delivery O2 Flow Rate FiO2 08/18/17 07:04 36.8 76 18 127/71 (89) 96 Room Air 08/17/17 23:55 Room Air 08/17/17 23:40 36.7 86 16 130/66 (87) 95 Room Air 08/17/17 15:44 36.4 72 18 115/63 (80) 95 Room Air 08/17/17 15:20 Room Air Physical Exam General: + well developed, + well nourished, No distress CV: + RRR Pulmonary: + pertinent finding (decreased at bases R>L), No accessory muscle use, No respiratory distress Abdomen: + non-distended, + non tender, + soft Extremities: No calf tenderness Neurologic: + alert & oriented x 3 Radiology small right apical pneumothorax noted Drains / Tubes chest tube (430 cc last 24 hours; 80 cc last 8 hours; no air leak) Assessment & Plan 82 year old male s/p RUL -keep CT in place due to drainage -continue IS, pulmonary toilet and mobilization -continue pain control measures OTHER -lovenox for DVT prevention -d/c home once CT removed, possibly tomorrow
[2017-08-18] MEDS ORDERED: NURSING VERBAL MED ORDER ONE (12:30)
[2017-08-18] MEDS ORDERED: SODIUM CHLORIDE 0.65% NA SOLN 45 ML (OCEAN) PRN (12:30)
[2017-08-18 15:15] VITALS: BP 148/75; PULSE 77; TEMP 36.4; O2SAT 95
[2017-08-18] MEDS: OXYCODONE HCL IR 5 MG TAB (IMMEDIATE RELEASE) PO PRN ×2 (17:25→23:56)
[2017-08-18] MEDS: TAMSULOSIN HCL 0.4 MG CAP PO SCH (21:12)
[2017-08-18 23:15] VITALS: BP_SYST 106; BP_SYST 131; BP_DIAS 65; BP_DIAS 68; PULSE 83; TEMP 37; O2SAT 95
[2017-08-19] MEDS: ACETAMINOPHEN 500 MG TAB PO SCH ×3 (05:52→21:29)
[2017-08-19] MEDS: OXYCODONE HCL IR 5 MG TAB (IMMEDIATE RELEASE) PO PRN (05:54)
[2017-08-19 07:07] VITALS: BP 145/81; PULSE 84; TEMP 36.5; O2SAT 96
[2017-08-19 07:30] VITALS: O2SAT 95
[2017-08-19] MEDS: AVODART: ORDER AWAITING ACTION SCH ×2 (07:44→16:00)
--- NOTE | 2017-08-19 07:46 | Anesthesiology Progress Note ---
Anesthesia Post Op Note Date & Time Aug 19, 2017 at 07:46 Vital Signs Vital Signs Past 12 Hours Date Time Temp Pulse Resp B/P (MAP) Pulse Ox O2 Delivery O2 Flow Rate FiO2 08/19/17 07:30 95 Room Air 08/19/17 00:05 Room Air 08/18/17 23:15 37.0 83 16 131/68 (89) 95 Room Air Notes Mental Status: alert / awake / arousable, participated in evaluation Pt Amnestic to Procedure: Yes Nausea / Vomiting: adequately controlled Pain: adequately controlled Airway Patency, RR, SpO2: stable & adequate BP & HR: stable & adequate Hydration State: stable & adequate Anesthetic Complications: no major complications apparent
[2017-08-19] MEDS: DOCUSATE SODIUM 100 MG CAP PO SCH ×2 (08:30→21:28)
[2017-08-19] MEDS: POLYETHYLENE (MIRALAX) 17 GM PACK PO SCH ×2 (08:30→21:28)
[2017-08-19] MEDS: LISINOPRIL 40 MG TAB PO SCH (08:30)
[2017-08-19] MEDS: PANTOprazole SOD 40 MG TAB PO SCH (08:30)
[2017-08-19] MEDS: ENOXAPARIN 40 MG/0.4 ML SYR SQ SCH (08:31)
[2017-08-19] MEDS ORDERED: CLC100 PO (08:46)
[2017-08-19] MEDS ORDERED: ACET325T95 PO (08:46)
[2017-08-19] MEDS ORDERED: TRAM-10 PO (08:46)
--- NOTE | 2017-08-19 08:49 | Discharge Instructions ---
Discharge Instructions Date of Service Aug 19, 2017. Admission Reason for Admission: Right Lung Mass, Left Lung Cancer Discharge Discharge Diagnosis / Problem: Right Lung Mass, Left Lung Cancer Discharge Goals Goal(s): Learn about illness Activity Recommendations Activity Limitations: as noted below Lifting Limitations: none 1. Do not drive until cleared by Dr. Mott. 2. [address] if taking ultram. . Instructions / Follow-Up Instructions / Follow-Up 1. Office appointment with Dr. Mott in 1 week. Office will call you with date and time of appointment. Go to hospital 1 hour before appointment to have a chest x-ray taken. 2. You may remove dressings in 3 days and shower thereafter. No tube baths. Current Hospital Diet Patient's current hospital diet: Regular Diet Discharge Diet Recommended Diet: Regular Diet Procedures Procedures Performed: Robot Assisted Right Thoracoscopy with Right Upper Lobectomy and Mediastinal Lymphadenectomy Pending Studies Studies pending at discharge: no Medical Emergencies . Who to Call and When: Medical Emergencies: If at any time you feel your situation is an emergency, please call 911 immediately. . Non-Emergent Contact Non-Emergency issues call your: Surgeon Call Non-Emergent contact if: you have a fever, your pain is not controlled, wound has increased drainage . "Provider Documentation" section prepared by Bandar Edouard. . VTE Core Measure Inpt VTE Proph given/why not?: Enoxaparin (Lovenox)SQ
--- NOTE | 2017-08-19 08:51 | Surgery Progress Note ---
Subjective Date of Service: Aug 19, 2017. Pt. notes pain from chest tube. No SOB. No N/V. he is ambulating in hallway and tolerating po intake. He denies voiding difficulty. Objective Vitals Date Time Temp Pulse Resp B/P (MAP) Pulse Ox O2 Delivery O2 Flow Rate FiO2 08/19/17 07:30 95 Room Air 08/19/17 07:07 36.5 84 18 145/81 (102) 96 Room Air 08/19/17 00:05 Room Air 08/18/17 23:15 37.0 83 16 131/68 (89) 95 Room Air 08/18/17 16:00 Room Air 08/18/17 15:15 36.4 77 18 148/75 (99) 95 Room Air Physical Exam General: + well developed, + well nourished CV: + RRR Pulmonary: + pertinent finding (BS decreased at bases; inspiratory effort limited by pain.), No accessory muscle use, No respiratory distress Abdomen: + non-distended, + non tender, + soft Extremities: No calf tenderness Neurologic: + alert & oriented x 3 Drains / Tubes chest tube (180 cc last 24 hours; 130 cc last shift; no air leak) Assessment & Plan 82 year old male s/p RUL -will d/c chest tube this am -continue us e of IS -continue pulmonary toilet and mobilization -continue pain control measures OTHER -lovenox for DVT prevention -d/c home today or tomorrow
--- NOTE | 2017-08-19 09:11 | DIAGNOSTIC IMAGING REPORT ---
CHEST ONE VIEW PORTABLE HISTORY: tube removal COMPARISON: Chest 08/18/2017. FINDINGS: The right-sided chest tube has been removed. No definite right pneumothorax. Suspect trace bilateral pleural effusions. The heart remains mildly enlarged. There are low lung volumes. Left basilar linear densities favor subsegmental atelectasis. Right medial apical/paratracheal density remains unchanged. IMPRESSION: 1. Interval removal of the right chest tube. No definite pneumothorax. 2. Trace bilateral pleural effusions. 3. Right medial apical/paratracheal density remains unchanged and may be due to the due to the postoperative change. Electronically signed by: Kenny Delaney M.D. 08/19/2017 9:09 AM Dictated Date/Time: 08/19/2017 9:05 AM
[2017-08-19 11:06] VITALS: BP 145/81; PULSE 84; TEMP 36.5; O2SAT 95
[2017-08-19 15:47] VITALS: BP 157/83; PULSE 71; TEMP 36.7; O2SAT 96
[2017-08-19] MEDS ORDERED: NURSING VERBAL MED ORDER ONE ×2 (16:45)
[2017-08-19] MEDS ORDERED: ALBUT/IPRATROP 3MG/0.5MG NEB 3 ML VIAL INH PRN (17:00)
[2017-08-19] MEDS: GUAIFENESIN 600 MG TABCR PO SCH ×2 (17:33→21:28)
[2017-08-19] MEDS: TAMSULOSIN HCL 0.4 MG CAP PO SCH (21:28)
[2017-08-19 23:05] VITALS: BP 142/75; PULSE 83; TEMP 36.7; O2SAT 95
[2017-08-20] MEDS: ACETAMINOPHEN 500 MG TAB PO SCH (06:06)
[2017-08-20 07:31] VITALS: BP 135/74; PULSE 72; TEMP 36.7; O2SAT 97
[2017-08-20 07:34] VITALS: BP 129/80; PULSE 67; TEMP 36.4; O2SAT 94
[2017-08-20] MEDS: AVODART: ORDER AWAITING ACTION SCH ×2 (08:00)
--- NOTE | 2017-08-20 08:23 | DISCHARGE SUMMARY ---
DISCHARGE DIAGNOSES: 1. Non-small cell lung carcinoma, right upper lobe. 2. Status post left lower lobectomy for non-small cell lung carcinoma in the past. 3. Long history of cigarette smoking. HOSPITAL COURSE: Jose Vidales is remarkable 82-year-old male who has been smoking his whole life. Back in May he underwent a thoracoscopic left lower lobectomy and was found to have a non-small cell lung carcinoma in his right upper lobe also. His mediastinal lymph nodes were negative on biopsies multiple times. We had a long talk about this and decided to proceed with SBRT; however, the patient really did not want this. After much discussion, we elected to proceed with a minimally invasive right upper lobectomy. On 08/16/2017 the patient underwent uncomplicated robotic right upper lobectomy with mediastinal lymphadenectomy. The path is still pending. He did well and was watched in the unit overnight and then sent to the floor. He did very well with this and was on room air and ambulating in the hallway. His chest tube was pulled out on postop day 3; however, he really did not feel very well. There were concerns about him going home by himself, so he was kept overnight. He felt better on postop day #4. I discussed this with his daughter. I gave her my cell phone number and said I would be glad that she should call me should any problems arise with him over the holiday weekend. I will see him back in a week with a chest x-ray.
[2017-08-20] MEDS: LISINOPRIL 40 MG TAB PO SCH (08:50)
[2017-08-20] MEDS: DOCUSATE SODIUM 100 MG CAP PO SCH (08:50)
[2017-08-20] MEDS: POLYETHYLENE (MIRALAX) 17 GM PACK PO SCH (08:50)
[2017-08-20] MEDS: PANTOprazole SOD 40 MG TAB PO SCH (08:50)
[2017-08-20] MEDS: ENOXAPARIN 40 MG/0.4 ML SYR SQ SCH (08:51)
[2017-08-20] MEDS: GUAIFENESIN 600 MG TABCR PO SCH (08:52)
== END 2017-08-20 10:04 | disposition home health service (06) | DRG 165 ==
LOC: C.ACU 08:27 → C.MSICU 16:39 → ENRESERV 17:10 → CANRESERV 08-17 08:17 → ENRESERV 08-17 08:31 → C.MSN 08-17 08:59
PROVIDERS: ADMIT Surgery; ATTEND Surgery
PROC: 0BJ08ZZ Inspection of Tracheobronchial Tree, Via Natural or Artificial Opening Endoscopic (ICD-10-PCS; 2017-08-16)
PROC: 0BTC4ZZ Resection of Right Upper Lung Lobe, Percutaneous Endoscopic Approach (ICD-10-PCS; principal; 2017-08-16 10:30)
PROC: 8E0W4CZ Robotic Assisted Procedure of Trunk Region, Percutaneous Endoscopic Approach (ICD-10-PCS; principal; 2017-08-16 10:30)
PROC: 07B74ZX Excision of Thorax Lymphatic, Percutaneous Endoscopic Approach, Diagnostic (ICD-10-PCS; principal; 2017-08-16 10:30)
DX: C34.11 Malignant neoplasm of upper lobe, right bronchus or lung (principal); Z87.891 Personal history of nicotine dependence; Z90.2 Acquired absence of lung [part of]; Z80.1 Family history of malignant neoplasm of trachea, bronchus and lung; R91.8 Other nonspecific abnormal finding of lung field; Z85.118 Personal history of other malignant neoplasm of bronchus and lung; J44.9 Chronic obstructive pulmonary disease, unspecified; E66.01 Morbid (severe) obesity due to excess calories; Z68.30 Body mass index [BMI] 30.0-30.9, adult

== ENCOUNTER → 2017-08-27 | Outpatient (CLI) | payer BC ==
[~2017-08-27] MED LIST changes: +ACET325T95 PO; +CLC100 PO; -LACTATED RINGER'S 1000ML 1,000 ML IV SCH; -SIMV40TA2 PO; -TERA5CAP PO; +TRAM-10 PO
--- NOTE | 2017-08-27 10:41 | DIAGNOSTIC IMAGING REPORT ---
CHEST 2 VIEWS ROUTINE CLINICAL HISTORY: LUNG NODULES, MALIGNANT NEOPLASM LOWER LOBE L LUNG COMPARISON STUDY: 08/19/2017 FINDINGS: Mild improvement in aeration left hemithorax. Right lung currently is clear. Minimal post procedural scarring central right hemidiaphragm. No focal infiltrative process of the right hemithorax. No significant cardiac enlargement. Improved superior mediastinal appearance IMPRESSION: Improved postprocedural chest series. No significant pneumothorax. The above report was generated using voice recognition software. It may contain grammatical, syntax or spelling errors. Electronically signed by: Junior Mckinney M.D. 08/27/2017 10:40 AM Dictated Date/Time: 08/27/2017 10:36 AM
== END | disposition home or self-care (01) ==
LOC: C.RAD 10:09
PROVIDERS: ATTEND Surgery
DX: C34.32 Malignant neoplasm of lower lobe, left bronchus or lung (principal); R91.8 Other nonspecific abnormal finding of lung field

== ENCOUNTER → 2017-10-03 | Outpatient (CLI) | payer OTHER ==
--- NOTE | 2017-10-03 11:17 | DIAGNOSTIC IMAGING REPORT ---
CHEST 2 VIEWS ROUTINE CLINICAL HISTORY: C34.32 Malignant neoplasm of lower lobe of left [id number] COMPARISON STUDY: 08/27/2017 FINDINGS: Postsurgical changes are again evident. There is evidence for pulmonary emphysema. There are small bilateral pleural effusions. There is no focal pulmonary consolidation.[ IMPRESSION: Small bilateral pleural effusions. Postsurgical change. No acute rectal consolidation Electronically signed by: Jeevan Cortes M.D. 10/03/2017 11:15 AM Dictated Date/Time: 10/03/2017 11:14 AM
== END | disposition home or self-care (01) ==
LOC: C.RAD 10:49
PROVIDERS: ATTEND Physician Assistant
DX: C34.32 Malignant neoplasm of lower lobe, left bronchus or lung (principal); J90 Pleural effusion, not elsewhere classified

== ENCOUNTER → 2018-01-07 | Outpatient (CLI) | payer OTHER ==
[~2018-01-07] MED LIST changes: -ACET325T95 PO; +TYLOTC325 PO
--- NOTE | 2018-01-07 11:51 | DIAGNOSTIC IMAGING REPORT ---
CHEST 2 VIEWS ROUTINE HISTORY: 82 years-old Male Z90.2 acute shortness of breath with prior lobectomy COMPARISON: Chest radiograph 10/03/2017, chest CT 11/18/2017 TECHNIQUE: PA and lateral views of the chest FINDINGS: Postoperative changes about the bilateral lungs are redemonstrated. Cardiac silhouette is within normal limits. Atherosclerosis of the aorta. 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 Bones of the chest appear grossly intact. IMPRESSION: 1. No acute processes of the chest. 2. Postsurgical changes of the bilateral lungs with chronic blunting of the costophrenic angles with bibasilar scarring. The above report was generated using voice recognition software. It may contain grammatical, syntax or spelling errors. Electronically signed by: Burak Sweeney M.D. 01/07/2018 11:50 AM Dictated Date/Time: 01/07/2018 11:47 AM
== END | disposition home or self-care (01) ==
LOC: C.RAD 11:22
PROVIDERS: ATTEND Physician Assistant
DX: Z90.2 Acquired absence of lung [part of] (principal)